=== PATIENT | female | born 1975 | race Caucasian/White ===

== ENCOUNTER → 2017-08-24 08:06 | Outpatient (CLI) | payer SELFPAY ==
[2017-08-24 08:27] LABS: Red Blood Cells-Urine 0 SEEN /hpf (0-5)
[2017-08-24 10:24] LABS: Color, Urine Yellow (Yellow); Glucose, Dipstick Normal (Normal); Ketone-Dipstick Negative (Negative); Leukocyte Esterase-Dipstick 25 /ul (Negative); Nitrite-Dipstick Negative (Negative); Occult Blood-Urine 10 /ul (Negative); Protein-Dipstick 15 mg/dl (Negative); Urine Bilirubin Dipstick Negative (Negative); Urine Clarity Cloudy (Clear); Urine Urobilinogen Normal (Normal)
[2017-08-24 10:37] LABS: Bacteria 1+ /hpf (None Seen); Mucous, Urine 1+ /hpf (<or=2+); Squamous Epithelial Cells - UA 5-10 SEEN /hpf (5-10); White Blood Cells 0-5 SEEN /hpf (0-5)
[2017-08-24 10:55] LABS: Absolute Lymphocyte Count 1.65 X10^3/ul (0.83-4.51); Absolute Neutrophil Count 3.1 X10^3/uL (2.0-7.7); Basophil# 0.02 X10^3/uL; Basophil% 0.4 % (0-1); Eosinophil# 0.17 X10^3/uL; Eosinophils% 3.2 % (0-5); Hematocrit 41.3 % (37-47); Hemoglobin 13.9 g/dl (12.0-15.0); Lymphocyte # 1.65 X10^3/ul (4.0); Mean Corp Hgb Conc 33.7 g/gl (32-36); Mean Corpuscular Hgb 34.3 pg (27.0-32.0); Mean Platelet Vol. 12.1 fl (6.2-12.0); Monocyte# 0.37 X10^3/uL; Neutrophil % 58.2 % (47-70); Platelet Count 155 K/mm3 (150-450); RBC Distribution Width CV 12.9 % (11.6-14.6); RBC Distribution Width SD 47.8 fl (35.1-43.9); Red Blood Count 4.05 M/mm3 (4.2-5.4); White Blood Count 5.3 K/mm3 (4.4-11.0)
[2017-08-24 11:00] LABS: Vitamin B12 625 pg/mL (211-911); Vitamin D,25 Hydroxy 11.3 ng/mL (19.95-100.01)
[2017-08-24 11:01] LABS: POSITIVE COUNT NO; POSITIVE DIFFERENTIAL NO; POSITIVE MORPHOLOGY NO
[2017-08-24 11:13] LABS: Hemoglobin A1c 5.7 % (4.2-6.3)
[2017-08-24 11:21] LABS: ALB/GLOB Ratio 0.9 RATIO (0.9-2.4); AST(SGOT) 30 U/L (15-37); Alanine Aminotransfer ALT/SGPT 37 U/L (13-56); Albumin, Serum 3.7 g/dL (3.2-5.0); Alkaline Phosphatase 64 U/L (45-117); Anion Gap 8 (5-15); BUN 12 mg/dL (7-18); BUN/Creat Ratio 10.2 RATIO (10-20); Calcium,Total 8.6 mg/dL (8.5-10.1); Chloride 99 mmol/L (98-107); Cholesterol 260 mg/dL (200); Creatinine, Serum 1.18 mg/dL (0.55-1.02); EST Glomerular Filtration Rate 54 mL/min (>60); Est Glom Filt Rate - Afr Amer 65 mL/min (>60); Globulin 4.2 g/dL (2.2-4.2); Glucose 108 mg/dL (74-106); High Density Lipoprotein 43 mg/dL; Protein, Total 7.9 g/dL (6.4-8.2); Sodium Level 137 mmol/L (136-145); T4 Free Direct 0.13 ng/dL (0.76-1.46); Triglycerides 187 mg/dL; Very Low Density Lipoprotein 37 mg/dL (5-40)
== END ==
PROVIDERS: Family Provider Family Medicine; PCP Family Medicine; Visit Provider Family Medicine
DX: E66.01 Morbid (severe) obesity due to excess calories (principal); E03.8 Other specified hypothyroidism; E78.5 Hyperlipidemia, unspecified; G62.9 Polyneuropathy, unspecified
CPT/HCPCS: 36415; 80053; 80061; 81001; 82306; 82607; 82746; 83036; 84439; 84443; 85025

== ENCOUNTER 2017-11-04 11:00 | Outpatient (RCR) | payer MEDICAID, SELFPAY ==
--- NOTE | 2017-09-29 16:07 | HP.OTEVAL_ITS ---
Patient's Visit Information LILLIANA OLIVERA is a 41 year old F, referred to Occupational Therapy by Landry Lowery MD,, with a diagnosis of Bilateral lymphedema. Date of Evaluation: 09/29/17 Occupational Therapist: SIXTO Leon/Jesus, CHT - Subjective Subjective: This 41 year old female states she has struggled with swelling in her LE and has had cellulitis- pt states she has tried to use compression hose but it has not been helpful and caused pain. - Pain bilateral legs 3 Pain Intensity Range: 0, 6 - Objective Objective/Observation: skin is dry and flak - Lymphedema (Circumferential Measure) Mid-foot: right 26.5cm left 26.5cm Ankle: right 30cm left 31.5cm Lower calf: right 38cm left 41.5cm Largest calf: right 57cm left 57cm Below knee: right 49cm left 49cm Above knee: right 69cm left 65cm - Sensation Sensation Comments: denies - Lower Limb Functional Index Lower Extremity Functional Score: 44 - Goals Demonstrate a 20% reduction in edema by d/c: Yes Demonstrate adequate knowledge of self-bangaging by 1st week: Yes Demonstrate adequate knowledge of self-massage by 2nd week: Yes Demonstrate adequate knowledge skin care/prec by 2nd week: Yes Demonstrate adequate knowledge therapeutic exercises by d/c: Yes Select approp compression garment w/donning/care/wear by d/c: Yes Voice need to replace compression garment every 4-6mo by dc: Yes - Rehabilitation General Assessment: pt demo with stage III lymphedema with skin changes and firm texture to her legs- pt ed. today on wraps to LE and use of compression to assist in mtg. pt demo undersanding and would benefit from further therapy services 1-2xweek for 4 weeks to decrease LE limb size and ensure pt gets 30- 40mmHg compression socks. Rehabilitation Potential: Questionable - Anticipated Interventions Anticipated Interventions: Education re assistive Equipment, Education re Diagnosis, Manual Lymph Drainage, Education re Life-long lymphedema Management, Education re Self-Bandaging Techniques, Education re Skin Care and Precautions, Education re Self Massage Techniques, Education re Correct Donning Tech,Care& Wearing Sched Comp Garments, Caregiver Training, Home Program - Visit Plan Frequency: 1-2x /Week Duration: 4 Weeks General Plan: will estabilis pts understanding of wraps to bilateral LE . pt will be seen in pool for 3-4 vists to stim lymph fluid flow and wrap following. and cont with HEP TEXT: Thank you for the opportunity to evaluate your patient. For Medicare and Medicare HMO plans, please review the plan of care and approve it. It will need to be FAXED BACK to us at [phone] for Medicare purposes. Please let me know if there are questions or concerns regarding this plan of care. Physician Signature: Date:
--- NOTE | 2017-11-04 11:40 | HP.OTDCSUM_ITS ---
HP - OT D/C Summary It has been my pleasure to treat LILLIANA OLIVERA under orders from Landry Lowery MD, for the diagnosis of Bilateral lymphedema for a total of 6 visit(s ). Please see the following information for a summary of their discharge status. - Objective Objective/Function: pt has lost 12lbs states her legs are feelsing better. R/L ankle 29.5/28cm. R/L LC 34/36cm. R/L UC 55/57. R/L BK 52cm/52cm. R/L AK 67/ 67cm - Goals Patient Goals: Learn how to Manage Lymphedema, Learn how to Apply Compression Stockings Demonstrate a 20% reduction in edema by d/c: Yes Demonstrate adequate knowledge of self-bangaging by 1st week: Yes Demonstrate adequate knowledge of self-massage by 2nd week: Yes Demonstrate adequate knowledge skin care/prec by 2nd week: Yes Demonstrate adequate knowledge therapeutic exercises by d/c: Yes Select approp compression garment w/donning/care/wear by d/c: Yes Voice need to replace compression garment every 4-6mo by dc: Yes - Plan Plan: D/C - D/C Information Discharge Comments: pt has demo a decreased in BLE edema - pt demo understanding of lymph mtg- pt has compression socks on order from [facility]- pt demo understanding of use and care- pt agree for D/C states she she feels the water therapy had helped and will cont with this to assist in mtg of her lymphedema. pt demo understanding of returning to her Dr. if swelling increases. Pt D/c at this time. If there are questions or concerns regarding this patient's occupational therapy , please fell free to call me at [phone]. Thank you for the referral of this patient. Sincerely, Radha Soria, OTR/L, CHT
== END 2017-11-04 19:00 | disposition home or self-care (01) ==
LOC: OT 11:00
PROVIDERS: Family Provider Family Medicine; PCP Family Medicine; Visit Provider Family Medicine
DX: I89.0 Lymphedema, not elsewhere classified (principal)
CPT/HCPCS: 97110; 97113; 97166; 97168; 97530

== ENCOUNTER 2017-11-15 21:13 | Emergency (ER) | payer MEDICAID, SELFPAY ==
[2017-11-15 21:14] VITALS: BP 158/79; PULSE 111; RESP 20; TEMP 37.2; O2SAT 95; BMI 56.9
[2017-11-15 21:32] LABS: Mucous, Urine 0 SEEN /hpf (<or=2+)
[2017-11-15 21:35] LABS: Color, Urine Yellow (Yellow); Glucose, Dipstick Normal (Normal); Ketone-Dipstick 5 mg/dl (Negative); Leukocyte Esterase-Dipstick 500 /ul (Negative); Nitrite-Dipstick Negative (Negative); Occult Blood-Urine 10 /ul (Negative); Protein-Dipstick 30 mg/dl (Negative); Urine Bilirubin Dipstick 1 mg/dL (Negative); Urine Clarity Sl. Cloudy (Clear); Urine Urobilinogen Normal (Normal)
[2017-11-15 21:42] LABS: Bacteria 3+ /hpf (None Seen); Red Blood Cells-Urine 0-5 SEEN /hpf (0-5); Squamous Epithelial Cells - UA 10-25 SEEN /hpf (5-10); White Blood Cells 5-10 SEEN /hpf (0-5)
--- NOTE | 2017-11-15 22:20 | CT_ITS ---
STUDY: CT ABDOMEN AND PELVIS WITH CONTRAST - VENOGRAM REASON FOR EXAM: Female, 41 years old. Right lower quadrant pain RADIATION DOSAGE (If Supplied By Facility): CTDIvol = ( 18.74 ) mGy, DLP = ( 1353.74 ) mGycm TECHNIQUE: Transaxial images were obtained from the dome of the diaphragm to the symphysis pubis without oral contrast. 100 ml of Isovue 300 contrast was administered. Multiplanar coronal and sagittal images were reformatted. CT venogram protocol utilized, with delayed images performed during venous phase. Individualized Dose Optimization Techniques Were Used For This CT. COMPARISON: None. FINDINGS: STUDY: CT ABDOMEN AND PELVIS WITH CONTRAST REASON FOR EXAM: Female, 41 years old. Right lower quadrant pain RADIATION DOSAGE (If Supplied By Facility): CTDIvol = ( 18.74 ) mGy, DLP = ( 1353.74 ) mGycm TECHNIQUE: Transaxial images were obtained from the dome of the diaphragm to the symphysis pubis without oral contrast. 100 ml of Isovue 300 contrast was administered. Sagittal and coronal images were reconstructed. Individualized dose optimization techniques were used for this CT. COMPARISON: None. FINDINGS: The visualized lung bases are clear. The visualized portions of the heart and pericardium are within normal limits. There are multiple small calcified gallstones present. The liver is within normal limits. There are no suspicious hepatic lesions. The spleen is normal in size. The pancreas is within normal limits. The adrenal glands are within normal limits. There are no obstructing renal stones. There is no hydronephrosis. There are no focal renal lesions. Normal visualized stomach. There is no bowel obstruction or inflammation. The appendix is visualized and appears normal. The aorta is normal in caliber. There is no abdominal or pelvic free air, free fluid, fluid collection or lymphadenopathy. There are no destructive osseous lesions. CT/Abdomen/Pelvis W IV Cont ONLY IMPRESSION: No acute abdominal or pelvic pathology. Gallstones. Electronically Signed: Duane Almaraz, at 23:47 EDT Tel , Service support ,
--- NOTE | 2017-11-15 22:22 | ED.VISSUMM ---
- ER Visit Summary Date of Service: 11/15/17 Chief Complaint: Abdominal pain History of Present Illness: The patient is a 41 F with abdominal pain. Symptoms started about 4 days ago. They have been intermittent. Started just to the right of her umbilicus and then has progressed to the right lower quadrant. Low-grade fever yesterday. No nausea, vomiting, or diarrhea. No skin changes or jaundice. No urinary symptoms. She has a history of tubal ligation and hysteroscopy but no other abdominal surgeries. Physical Examination: Hypertensive and heart rate 111. Otherwise vitals unremarkable. Afebrile. No acute distress. Alert and oriented. Heart regular. Lungs clear. Abdomen tender in the right lower quadrant region. No guarding or rebound. No CVA tenderness. Skin is normal in color. Test Results: Labs, urinalysis, and CT pending. Emergency Department Course and Treatment: Patient was treated with fluids while awaiting results. She declined pain medicine. Workup was unremarkable. Her urinalysis was likely contaminated, but I cannot rule out an infection. I was sent a culture. The patient did not want to be on preemptive antibiotics. CT showed gallstones but nothing acute. Patient remained stable. I am not sure what is causing her pain. She may take over the remedies for pain. Return for any new or worsening issues otherwise follow-up with primary care. Treatment Plan: As above Disposition: Discharged Impression: Abdominal pain This note was generated with [employer] dictation software. It may contain incorrect words, spelling, and punctuation that were not noted in review of the chart prior to signing ED Disposition - Plan for ED Patient: Chief Complaint: Abd Pain Referrals: Landry Lowery MD [Primary Care Provider] -
[2017-11-15 23:03] LABS: Absolute Lymphocyte Count 2.07 X10^3/ul (0.83-4.51); Absolute Neutrophil Count 4.2 X10^3/uL (2.0-7.7); Basophil# 0.01 X10^3/uL; Basophil% 0.1 % (0-1); Eosinophil# 0.18 X10^3/uL; Eosinophils% 2.5 % (0-5); Hematocrit 40.2 % (37-47); Lymphocyte # 2.07 X10^3/ul (4.0); Mean Corp Hgb Conc 32.3 g/gl (32-36); Mean Corpuscular Hgb 31.1 pg (27.0-32.0); Mean Corpuscular Volume 96.2 fL (81-99); Mean Platelet Vol. 10.8 fl (6.2-12.0); Monocyte# 0.62 X10^3/uL; Monocyte% 8.7 % (0-10); Neutrophil # 4.24 X10^3/uL (2.7-7.7); Neutrophil % 59.6 % (47-70); Platelet Count 194 K/mm3 (150-450); RBC Distribution Width SD 44.7 fl (35.1-43.9); Red Blood Count 4.18 M/mm3 (4.2-5.4); White Blood Count 7.1 K/mm3 (4.4-11.0)
[2017-11-15 23:05] LABS: POSITIVE COUNT NO; POSITIVE DIFFERENTIAL NO; POSITIVE MORPHOLOGY NO
[2017-11-15] MEDS: 0.9% Normal Saline 1,000 ML 125 ML IV (23:10)
[2017-11-15 23:16] LABS: ALB/GLOB Ratio 0.7 RATIO (0.9-2.4); AST(SGOT) 17 U/L (15-37); Alanine Aminotransfer ALT/SGPT 24 U/L (13-56); Albumin, Serum 3.2 g/dL (3.2-5.0); Alkaline Phosphatase 64 U/L (45-117); Anion Gap 3 (5-15); BUN 14 mg/dL (7-18); BUN/Creat Ratio 14.4 RATIO (10-20); Calcium,Total 9.1 mg/dL (8.5-10.1); Chloride 106 mmol/L (98-107); Creatinine, Serum 0.97 mg/dL (0.55-1.02); EST Glomerular Filtration Rate 67 mL/min (>60); Est Glom Filt Rate - Afr Amer 82 mL/min (>60); Estimated Creatinine Clearance 87.03 ml/min; Globulin 4.3 g/dL (2.2-4.2); Glucose 108 mg/dL (74-106); Lipase 109 U/L (73-393); Potassium 3.9 mmol/L (3.5-5.1); Protein, Total 7.5 g/dL (6.4-8.2); Sodium Level 142 mmol/L (136-145)
[2017-11-15 23:19] LABS: Pregnancy, Serum, hCG Quali. NEGATIVE Negative (0-9 Nonpreg)
[2017-11-15 23:59] VITALS: BP 111/59; PULSE 91; O2SAT 93
--- NOTE | 2017-11-16 00:54 | ED.DEP ---
ED Disposition - Plan for ED Patient: Chief Complaint: Abd Pain Instructions: ED Abdominal Pain Unkn Cause Referrals: Landry Lowery MD [Primary Care Provider] -
[2017-11-16 01:01] VITALS: BP 128/71; PULSE 86; RESP 20; O2SAT 93
== END 2017-11-16 01:04 | disposition home or self-care (01) ==
LOC: ED 22:29
PROVIDERS: Emergency Provider Emergency Medicine; Family Provider Family Medicine; PCP Family Medicine
DX: R10.9 Unspecified abdominal pain (principal); E78.00 Pure hypercholesterolemia, unspecified; G47.33 Obstructive sleep apnea (adult) (pediatric); Z98.51 Tubal ligation status
CPT/HCPCS: 74177; 80053; 81001; 83690; 84703; 85025; 99283; J7030; A4216

== ENCOUNTER → 2017-11-24 09:30 | Outpatient (CLI) | payer MEDICAID, SELFPAY ==
[2017-11-24 12:47] LABS: Cholesterol 122 mg/dL (200); High Density Lipoprotein 36 mg/dL; T4 Free Direct 1.21 ng/dL (0.76-1.46); Thyroid Stim Hormone (TSH) 5.23 uIU/mL (0.358-3.74); Triglycerides 155 mg/dL; Very Low Density Lipoprotein 31 mg/dL (5-40)
[2017-11-24 12:48] LABS: Hemoglobin A1c 5.3 % (4.2-6.3)
[2017-11-25 09:30] LABS: Vitamin D,25 Hydroxy 44.5 ng/mL (29.95-100.01)
== END ==
PROVIDERS: Family Provider Family Medicine; PCP Family Medicine; Visit Provider Family Medicine
DX: R73.02 Impaired glucose tolerance (oral) (principal); E78.5 Hyperlipidemia, unspecified; E03.8 Other specified hypothyroidism; E55.9 Vitamin D deficiency, unspecified
CPT/HCPCS: 36415; 80061; 82306; 83036; 84439; 84443

== ENCOUNTER → 2017-12-01 23:53 | Outpatient (CLI) | payer MEDICAID, SELFPAY | PROVIDERS: Family Provider Family Medicine; PCP Family Medicine; Visit Provider Internal Medicine Critical Care Medicine | DX: G47.33 Obstructive sleep apnea (adult) (pediatric) (principal) | CPT/HCPCS: 95811 ==

== ENCOUNTER → 2018-02-04 11:07 | Outpatient (CLI) | payer MEDICAID, SELFPAY | PROVIDERS: Family Provider Family Medicine; PCP Family Medicine; Visit Provider Nurse Practitioner Family | DX: Z46.89 Encounter for fitting and adjustment of other specified devices (principal) | CPT/HCPCS: 98960; G0463 ==

== ENCOUNTER → 2018-03-03 10:04 | Outpatient (CLI) | payer MEDICAID, SELFPAY ==
[2018-03-03 12:52] LABS: ALB/GLOB Ratio 0.7 RATIO (0.9-2.4); AST(SGOT) 22 U/L (15-37); Alanine Aminotransfer ALT/SGPT 25 U/L (13-56); Alkaline Phosphatase 73 U/L (45-117); Anion Gap 7 (5-15); BUN 12 mg/dL (7-18); BUN/Creat Ratio 12.7 RATIO (10-20); Calcium,Total 8.5 mg/dL (8.5-10.1); Chloride 107 mmol/L (98-107); Cholesterol 185 mg/dL (200); Creatinine, Serum 0.95 mg/dL (0.55-1.02); EST Glomerular Filtration Rate 70 mL/min (>60); Est Glom Filt Rate - Afr Amer 84 mL/min (>60); Globulin 4.4 g/dL (2.2-4.2); Glucose 105 mg/dL (74-106); High Density Lipoprotein 32 mg/dL; Potassium 3.8 mmol/L (3.5-5.1); Protein, Total 7.4 g/dL (6.4-8.2); Sodium Level 141 mmol/L (136-145); T4 Free Direct 0.51 ng/dL (0.76-1.46); Triglycerides 223 mg/dL; Very Low Density Lipoprotein 45 mg/dL (5-40)
[2018-03-03 12:56] LABS: Hemoglobin A1c 5.4 % (4.2-6.3); Vitamin D,25 Hydroxy 25.6 ng/mL (29.95-100.01)
== END ==
PROVIDERS: Family Provider Family Medicine; PCP Family Medicine; Visit Provider Family Medicine
DX: E55.9 Vitamin D deficiency, unspecified (principal); E03.8 Other specified hypothyroidism; E78.5 Hyperlipidemia, unspecified; R73.02 Impaired glucose tolerance (oral); E66.01 Morbid (severe) obesity due to excess calories
CPT/HCPCS: 36415; 80053; 80061; 82306; 83036; 84439; 84443

== ENCOUNTER → 2018-08-27 14:08 | Outpatient (CLI) | payer MEDICAID, SELFPAY ==
[2018-03-03 13:21] VITALS: BMI 58.6
[2018-08-27 16:01] LABS: Absolute Lymphocyte Count 2.05 X10^3/ul (0.83-4.51); Absolute Neutrophil Count 3.3 X10^3/uL (2.0-7.7); Basophil# 0.01 X10^3/uL; Basophil% 0.2 % (0-1); Eosinophil# 0.14 X10^3/uL; Eosinophils% 2.4 % (0-5); Hematocrit 42.2 % (37-47); Hemoglobin 13.2 g/dl (12.0-15.0); Lymphocyte # 2.05 X10^3/ul (4.0); Mean Corp Hgb Conc 31.3 g/gl (32-36); Mean Corpuscular Hgb 30.1 pg (27.0-32.0); Mean Corpuscular Volume 96.3 fL (81-99); Mean Platelet Vol. 11.1 fl (6.2-12.0); Monocyte# 0.35 X10^3/uL; Neutrophil # 3.29 X10^3/uL (2.7-7.7); Neutrophil % 56.1 % (47-70); Platelet Count 188 K/mm3 (150-450); RBC Distribution Width CV 13.3 % (11.6-14.6); Red Blood Count 4.38 M/mm3 (4.2-5.4); White Blood Count 5.9 K/mm3 (4.4-11.0)
[2018-08-27 16:04] LABS: POSITIVE COUNT NO; POSITIVE DIFFERENTIAL NO; POSITIVE MORPHOLOGY NO
[2018-08-27 16:05] LABS: Hemoglobin A1c 5.6 % (4.2-6.3)
[2018-08-27 16:14] LABS: Vitamin D,25 Hydroxy 37.6 ng/mL (29.95-100.01)
[2018-08-27 16:19] LABS: ALB/GLOB Ratio 0.6 RATIO (0.9-2.4); AST(SGOT) 21 U/L (15-37); Alanine Aminotransfer ALT/SGPT 35 U/L (13-56); Alkaline Phosphatase 73 U/L (45-117); Anion Gap 9 (5-15); BUN 8 mg/dL (7-18); BUN/Creat Ratio 10.8 RATIO (10-20); Calcium,Total 8.5 mg/dL (8.5-10.1); Chloride 105 mmol/L (98-107); Creatinine, Serum 0.74 mg/dL (0.55-1.02); EST Glomerular Filtration Rate 92 mL/min (>60); Est Glom Filt Rate - Afr Amer 112 mL/min (>60); Globulin 4.7 g/dL (2.2-4.2); Glucose 77 mg/dL (74-106); Potassium 3.8 mmol/L (3.5-5.1); Protein, Total 7.7 g/dL (6.4-8.2); Sodium Level 143 mmol/L (136-145); Thyroid Stim Hormone (TSH) 1.34 uIU/mL (0.358-3.74)
== END ==
PROVIDERS: Family Provider Family Medicine; PCP Family Medicine; Referring Provider Family Medicine; Visit Provider Family Medicine
DX: E55.9 Vitamin D deficiency, unspecified (principal); E03.8 Other specified hypothyroidism; R73.02 Impaired glucose tolerance (oral); E66.01 Morbid (severe) obesity due to excess calories; G47.33 Obstructive sleep apnea (adult) (pediatric)
CPT/HCPCS: 36415; 80053; 82306; 83036; 84443; 85025

== ENCOUNTER → 2019-01-18 14:54 | Outpatient (CLI) | payer SELFPAY ==
[2018-03-03 13:21] VITALS: BMI 58.6
[2019-01-18 18:10] LABS: Albumin, Serum 3.3 g/dL (3.2-5.0); BUN 10 mg/dL (7-18); BUN/Creat Ratio 12.3 RATIO (10-20); Creatinine, Serum 0.81 mg/dL (0.55-1.02); EST Glomerular Filtration Rate 83 mL/min (>60); Est Glom Filt Rate - Afr Amer 100 mL/min (>60); Glucose 106 mg/dL (74-106); Protein, Total 7.7 g/dL (6.4-8.2)
[2019-01-18 18:11] LABS: ALB/GLOB Ratio 0.8 RATIO (0.9-2.4); AST(SGOT) 27 U/L (15-37); Alanine Aminotransfer ALT/SGPT 40 U/L (13-56); Alkaline Phosphatase 68 U/L (45-117); Anion Gap 6 (5-15); Calcium,Total 8.7 mg/dL (8.5-10.1); Chloride 105 mmol/L (98-107); Cholesterol 93 mg/dL (200); Globulin 4.4 g/dL (2.2-4.2); High Density Lipoprotein 37 mg/dL; Potassium 4.3 mmol/L (3.5-5.1); Sodium Level 140 mmol/L (136-145); Thyroid Stim Hormone (TSH) 0.47 uIU/mL (0.358-3.74); Triglycerides 77 mg/dL; Very Low Density Lipoprotein 15 mg/dL (5-40)
[2019-01-18 18:13] LABS: Vitamin D,25 Hydroxy 42.3 ng/mL (29.95-100.01)
[2019-01-18 18:17] LABS: Hemoglobin A1c 5.6 % (4.2-6.3)
== END ==
PROVIDERS: Family Provider Family Medicine; PCP Family Medicine; Visit Provider Family Medicine
DX: E03.8 Other specified hypothyroidism (principal); E78.5 Hyperlipidemia, unspecified; E66.01 Morbid (severe) obesity due to excess calories; E55.9 Vitamin D deficiency, unspecified; R73.02 Impaired glucose tolerance (oral)
CPT/HCPCS: 36415; 80053; 80061; 82306; 83036; 84443

== ENCOUNTER → 2019-07-11 15:44 | Outpatient (CLI) | payer SELFPAY ==
[2018-03-03 13:21] VITALS: BMI 58.6
[2019-07-11 18:03] LABS: Absolute Lymphocyte Count 1.87 X10^3/uL (0.83-4.51); Absolute Neutrophil Count 4.7 X10^3/uL (2.0-7.7); Basophil# 0.03 X10^3/uL; Basophil% 0.4 % (0-1); Eosinophil# 0.16 X10^3/uL; Eosinophils% 2.2 % (0-5); Hematocrit 42.5 % (37-47); Hemoglobin 13.9 g/dL (12.0-15.0); Lymphocyte # 1.87 X10^3/ul (4.0); Lymphocyte % 25.8 % (19-41); Mean Corp Hgb Conc 32.7 g/dL (32-36); Mean Corpuscular Hgb 33.1 pg (27.0-32.0); Mean Corpuscular Volume 101.2 fL (81-99); Mean Platelet Vol. 11.3 fl (6.2-12.0); Monocyte# 0.44 X10^3/uL; Monocyte% 6.1 % (0-10); NRBC Flagged by Analyzer 0 % (0-5); Neutrophil # 4.73 X10^3/uL (2.7-7.7); Neutrophil % 65.1 % (47-70); Platelet Count 188 K/mm3 (150-450); RBC Distribution Width CV 12.5 % (11.6-14.6); RBC Distribution Width SD 46.7 fl (35.1-43.9); White Blood Count 7.3 K/mm3 (4.4-11.0)
[2019-07-11 18:07] LABS: Vitamin D,25 Hydroxy 23.9 ng/mL (29.95-100.01)
[2019-07-11 18:12] LABS: Hemoglobin A1c 5.3 % (4.2-6.3)
[2019-07-11 18:20] LABS: ALB/GLOB Ratio 0.7 RATIO (0.9-2.4); AST(SGOT) 15 U/L (15-37); Alanine Aminotransfer ALT/SGPT 28 U/L (13-56); Albumin, Serum 3.1 g/dL (3.2-5.0); Alkaline Phosphatase 75 U/L (45-117); Anion Gap 3 (5-15); BUN 11 mg/dL (7-18); BUN/Creat Ratio 12.8 RATIO (10-20); Calcium,Total 8.5 mg/dL (8.5-10.1); Chloride 107 mmol/L (98-107); Cholesterol 180 mg/dL (200); Creatinine, Serum 0.86 mg/dL (0.55-1.02); EST Glomerular Filtration Rate 77 mL/min (>60); Est Glom Filt Rate - Afr Amer 94 mL/min (>60); Globulin 4.4 g/dL (2.2-4.2); Glucose 110 mg/dL (74-106); High Density Lipoprotein 37 mg/dL; Potassium 4.3 mmol/L (3.5-5.1); Protein, Total 7.5 g/dL (6.4-8.2); Sodium Level 141 mmol/L (136-145); Thyroid Stim Hormone (TSH) 7.55 uIU/mL (0.358-3.74); Triglycerides 222 mg/dL; Very Low Density Lipoprotein 44 mg/dL (5-40)
[2019-07-12 10:38] LABS: T4 Free Direct 1.06 ng/dL (0.76-1.46)
== END ==
PROVIDERS: Family Provider Family Medicine; PCP Family Medicine; Visit Provider Family Medicine
DX: R73.02 Impaired glucose tolerance (oral) (principal); E66.01 Morbid (severe) obesity due to excess calories; G47.33 Obstructive sleep apnea (adult) (pediatric); E78.5 Hyperlipidemia, unspecified; E55.9 Vitamin D deficiency, unspecified; E03.8 Other specified hypothyroidism
CPT/HCPCS: 36415; 80053; 80061; 82306; 83036; 84439; 84443; 85025

== ENCOUNTER → 2019-11-01 16:20 | Outpatient (CLI) | payer SELFPAY ==
[2018-03-03 13:21] VITALS: BMI 58.6
[2019-11-01 18:03] LABS: Vitamin D,25 Hydroxy 35.5 ng/mL
== END ==
PROVIDERS: PCP Family Medicine; Referring Provider Family Medicine; Visit Provider Family Medicine
DX: E55.9 Vitamin D deficiency, unspecified (principal); E03.8 Other specified hypothyroidism
CPT/HCPCS: 36415; 82306; 84443

== ENCOUNTER → 2020-01-24 11:26 | Outpatient (CLI) | payer SELFPAY ==
[2020-01-24 15:34] LABS: Vitamin D,25 Hydroxy 49.6 ng/mL
[2020-01-24 16:01] LABS: T4 Free Direct 2.09 ng/dL (0.76-1.46)
[2020-01-24 16:56] LABS: Hemoglobin A1c 5.5 % (3.8-5.6)
== END ==
PROVIDERS: PCP Family Medicine; Referring Provider Family Medicine; Visit Provider Family Medicine
DX: E03.8 Other specified hypothyroidism (principal); E55.9 Vitamin D deficiency, unspecified; R73.02 Impaired glucose tolerance (oral)
CPT/HCPCS: 36415; 82306; 83036; 84439; 84443

== ENCOUNTER 2020-03-29 00:17 | Emergency (ER) | payer SELFPAY ==
[2020-03-29 00:18] VITALS: BP 157/69; PULSE 95; RESP 20; TEMP 37.2; O2SAT 96; BMI 60.2
--- NOTE | 2020-03-29 00:31 | ED.VIS.GEN ---
History of Present Illness Chief Complaint: Abscess Narrative: This patient is a 44-year-old female who presents with rectal pain. She states she has been trying to change her diet and has had constipation. She now has pain with defecation on the right side of her anus. She was concerned she may have an abscess. No fevers. No abdominal pain. No history of prior similar symptoms. Past Medical History - Allergies and Home Meds Allergies/Adverse Reactions: Allergies sulfamethoxazole [From Bactrim] Allergy (Mild, Verified 03/29/20 00:21) Rash trimethoprim [From Bactrim] Allergy (Mild, Verified 03/29/20 00:21) Rash Primary Care Physician: Landry Lowery MD [Primary Care Provider] - Past Medical History: - - Hypothyroidism, hyperlipidemia Smoking Status: Never smoker Review of Systems All systems negative except as indicated General: Denies: Fever Cardiovascular: Denies: Chest pain Respiratory: Denies: Dyspnea Gastrointestinal: Reports: Constipation. Denies: Abdominal pain, Nausea, Diarrhea Skin: Denies: Rash Neurological: Denies: Headache Physical Exam Vital Signs/Narrative: Vital Signs Temp Pulse Resp BP Pulse Ox 03/29/20 00:18 98.9 F 95 20 H 157/69 H 96 Inital Vital Signs reviewed: Yes General: Well nourished Head: Normocephalic Eyes: EOMI ENT: Moist mucous membranes Neck: Supple Cardiovascular: Regular rate Respiratory: No distress Abdomen: Soft, Nontender Rectal: - - Patient does have an anal fissure, no perianal abscess Skin: Normal color Neurological: Alert Psychological: Normal affect Diagnostic/Tx/Re-eval - Medical Decision Making Patient was given lidocaine jelly here to help with symptomatic relief. I discussed treatment for constipation is the mainstay of treatment for anal fissure. Patient understands to return for new or worsening symptoms. Patient advised to follow-up as an outpatient. Patient was discharged. ED Disposition - Plan for ED Patient: Disposition: Home or Assisted Living Diagnosis: Anal fissure Instructions: ED Fissure Anal Ch Referrals: Landry Lowery MD [Primary Care Provider] -
[2020-03-29] MEDS: Lidocaine 2% Jelly 1 APPLIC Tube TOPICAL (00:41)
== END 2020-03-29 00:59 | disposition home or self-care (01) ==
LOC: ED 00:45
PROVIDERS: Emergency Provider Emergency Medicine; PCP Family Medicine
DX: K60.2 Anal fissure, unspecified (principal); E03.9 Hypothyroidism, unspecified; E78.5 Hyperlipidemia, unspecified; K59.00 Constipation, unspecified; Z88.1 Allergy status to other antibiotic agents; Z88.2 Allergy status to sulfonamides
CPT/HCPCS: 99282

== ENCOUNTER → 2020-07-27 15:30 | Outpatient (CLI) | payer SELFPAY ==
[2020-07-27 17:58] LABS: Vitamin D,25 Hydroxy 31.2 ng/mL
[2020-07-27 18:04] LABS: Hemoglobin A1c 5.4 % (3.8-5.6)
[2020-07-27 18:10] LABS: ALB/GLOB Ratio 0.7 RATIO (0.9-2.4); AST(SGOT) 18 U/L (15-37); Alanine Aminotransfer ALT/SGPT 27 U/L (13-56); Albumin, Serum 3.4 g/dL (3.2-5.0); Alkaline Phosphatase 84 U/L (45-117); Anion Gap 4 (5-15); BUN 15 mg/dL (7-18); BUN/Creat Ratio 15.6 RATIO (10-20); Calcium,Total 9.1 mg/dL (8.5-10.1); Chloride 107 mmol/L (98-107); Creatinine, Serum 0.96 mg/dL (0.55-1.02); EST Glomerular Filtration Rate 67 mL/min (>60); Est Glom Filt Rate - Afr Amer 82 mL/min (>60); Globulin 4.7 g/dL (2.2-4.2); Glucose 85 mg/dL (74-106); Potassium 4.2 mmol/L (3.5-5.1); Protein, Total 8.1 g/dL (6.4-8.2); Sodium Level 139 mmol/L (136-145); T4 Free Direct 1.22 ng/dL (0.76-1.46); Thyroid Stim Hormone (TSH) 6.21 uIU/mL (0.358-3.74)
== END ==
PROVIDERS: PCP Family Medicine; Referring Provider Family Medicine; Visit Provider Family Medicine
DX: E03.8 Other specified hypothyroidism (principal); E55.9 Vitamin D deficiency, unspecified; E66.01 Morbid (severe) obesity due to excess calories; R73.02 Impaired glucose tolerance (oral)
CPT/HCPCS: 36415; 80053; 82306; 83036; 84439; 84443

== ENCOUNTER → 2020-10-22 15:23 | Outpatient (CLI) | payer SELFPAY ==
[2020-10-22 18:29] LABS: ALB/GLOB Ratio 0.7 RATIO (0.9-2.4); AST(SGOT) 11 U/L (15-37); Alanine Aminotransfer ALT/SGPT 23 U/L (13-56); Albumin, Serum 3.2 g/dL (3.2-5.0); Alkaline Phosphatase 84 U/L (45-117); Anion Gap 3 (5-15); BUN 10 mg/dL (7-18); BUN/Creat Ratio 12.3 RATIO (10-20); Calcium,Total 8.7 mg/dL (8.5-10.1); Chloride 104 mmol/L (98-107); Cholesterol 155 mg/dL (200); Creatinine, Serum 0.82 mg/dL (0.55-1.02); EST Glomerular Filtration Rate 81 mL/min (>60); Est Glom Filt Rate - Afr Amer 99 mL/min (>60); Globulin 4.9 g/dL (2.2-4.2); Glucose 102 mg/dL (74-106); High Density Lipoprotein 40 mg/dL; Potassium 4.1 mmol/L (3.5-5.1); Protein, Total 8.1 g/dL (6.4-8.2); Sodium Level 139 mmol/L (136-145); Thyroid Stim Hormone (TSH) 4.54 uIU/mL (0.358-3.74); Triglycerides 175 mg/dL; Very Low Density Lipoprotein 35 mg/dL (5-40)
[2020-10-22 18:32] LABS: Vitamin D,25 Hydroxy 39.6 ng/mL
== END ==
PROVIDERS: PCP Family Medicine; Visit Provider Family Medicine
DX: E55.9 Vitamin D deficiency, unspecified (principal); E78.5 Hyperlipidemia, unspecified; E03.8 Other specified hypothyroidism
CPT/HCPCS: 36415; 80053; 80061; 82306; 84443

== ENCOUNTER → 2021-01-23 14:26 | Outpatient (CLI) | payer OTHER, SELFPAY ==
[2021-01-23 17:48] LABS: Absolute Lymphocyte Count 1.61 X10^3/uL (0.83-4.51); Absolute Neutrophil Count 3.7 X10^3/uL (2.0-7.7); Basophil# 0.02 X10^3/uL; Basophil% 0.3 % (0-1); Eosinophil# 0.17 X10^3/uL; Eosinophils% 2.8 % (0-5); Hemoglobin 14.2 g/dL (12.0-15.0); Lymphocyte # 1.61 X10^3/ul (0.83-4.51); Lymphocyte % 26.9 % (19-41); Mean Corp Hgb Conc 31.6 g/dL (32-36); Mean Corpuscular Hgb 31.6 pg (27.0-32.0); Mean Corpuscular Volume 100.2 fL (81-99); Mean Platelet Vol. 11.6 fl (6.2-12.0); Monocyte# 0.48 X10^3/uL; NRBC Flagged by Analyzer 0 % (0-5); Neutrophil # 3.68 X10^3/uL (2.7-7.7); Neutrophil % 61.5 % (47-70); Platelet Count 200 K/mm3 (150-450); RBC Distribution Width CV 13.5 % (11.6-14.6); RBC Distribution Width SD 49.8 fl (35.1-43.9); Red Blood Count 4.49 M/mm3 (4.2-5.4)
[2021-01-23 17:57] LABS: Vitamin D,25 Hydroxy 44.8 ng/mL
[2021-01-23 18:28] LABS: ALB/GLOB Ratio 0.7 RATIO (0.9-2.4); AST(SGOT) 15 U/L (15-37); Alanine Aminotransfer ALT/SGPT 22 U/L (13-56); Albumin, Serum 3.4 g/dL (3.2-5.0); Alkaline Phosphatase 89 U/L (45-117); Anion Gap 4 (5-15); BUN 12 mg/dL (7-18); BUN/Creat Ratio 12.5 RATIO (10-20); Calcium,Total 8.7 mg/dL (8.5-10.1); Chloride 102 mmol/L (98-107); Cholesterol 160 mg/dL (200); Creatinine, Serum 0.96 mg/dL (0.55-1.02); EST Glomerular Filtration Rate 67 mL/min (>60); Est Glom Filt Rate - Afr Amer 81 mL/min (>60); Globulin 4.7 g/dL (2.2-4.2); Glucose 117 mg/dL (74-106); High Density Lipoprotein 39 mg/dL; Potassium 4.1 mmol/L (3.5-5.1); Protein, Total 8.1 g/dL (6.4-8.2); Sodium Level 139 mmol/L (136-145); T4 Free Direct 0.72 ng/dL (0.76-1.46); Triglycerides 116 mg/dL; Very Low Density Lipoprotein 23 mg/dL (5-40)
[2021-01-25 16:09] LABS: PROEL- A/G Ratio 0.8 (0.7-1.7); PROEL- Albumin 3.5 g/dL (2.9-4.4); PROEL- Alpha-1 Globulin 0.3 g/dL (0.0-0.4); PROEL- Alpha-2 Globulin 0.9 g/dL (0.4-1.0); PROEL- Beta Globulin 1.3 g/dL (0.7-1.3); PROEL- Gamma Globulin 1.8 g/dL (0.4-1.8); PROEL- Globulin, Total 4.3 g/dL (2.2-3.9); PROEL- TOTAL PROTEIN 7.8 g/dL (6.0-8.5)
== END ==
PROVIDERS: PCP Family Medicine; Referring Provider Family Medicine; Visit Provider Family Medicine
DX: E88.09 Other disorders of plasma-protein metabolism, not elsewhere classified (principal); E03.8 Other specified hypothyroidism; E55.9 Vitamin D deficiency, unspecified
CPT/HCPCS: 36415; 80053; 80061; 82306; 84165; 84439; 84443; 85025

== ENCOUNTER → 2021-01-31 09:08 | Outpatient (CLI) | payer OTHER, SELFPAY ==
--- NOTE | 2021-01-31 09:10 | ECHOCS_ITS ---
Reason For Study: SOB Procedure This was a 2D Doppler, Color Flow transthoracic echocardiogram. The study was technically difficult. Contrast injection was performed. Exam performed in department. Left Ventricle Moderate concentric left ventricular hypertrophy. Based upon the 2D echocardiographic and contrast enhanced images obtained there appears to be grossly normal left ventricular size, wall motion, and systolic function. The estimated ejection fraction is 65 %. Transmitral doppler flow suggestive of impaired relaxation of left ventricle. Right Ventricle Based upon the 2D echocardiographic and contrast enhanced images obtained there appears to be grossly normal right ventricular size and systolic function. Atria The left atrium is not well visualized. The right atrium is not well visualized. No doppler evidence for ASD. Mitral Valve There is no mitral annular calcification. Normal mitral valve. Trivial mitral valve insufficiency. Tricuspid Valve Normal tricuspid valve. Trivial tricuspid valve insufficiency. Unable to estimate RV systolic pressure/pulmonary artery pressure due to technically difficult study. Aortic Valve The aortic valve is not well visualized. Pulmonic Valve The pulmonic valve is not well visualized. Great Vessels Normal sized aortic root. Pericardium/Pleural No pericardial effusion. Medication 22 gauge I.V. with prn adaptor inserted into right arm. Diluted definity 2ml given slow IV push to enhance endocardial definition. MMode/2D Measurements & Calculations LVIDd: 3.9 cm IVSd: 1.5 cm Ao root diam: 3.8 cm LVIDs: 2.1 cm LVPWd: 1.4 cm FS: 46.5 % LA dimension(2D): 4.5 cm Doppler Measurements & Calculations MV E max stephen: 67.6 cm/sec Lat Peak E' Stephen: 8.7 cm/sec Med Peak E' Stephen: 8.7 cm/sec MV A max stephen: 82.5 cm/sec E/E' lat: 7.8 E/E' med: 7.8 MV E/A: 0.82 Ao V2 max: 119.6 cm/sec LV V1 max: 97.0 cm/sec PA V2 max: 107.7 cm/sec Ao max P.7 mmHg LV V1 max P.8 mmHg ECHO/Echo Complete W/ Contrast Interpretation Summary The study was technically difficult. Contrast injection was performed. Based upon the 2D echocardiographic and contrast enhanced images obtained there appears to be grossly normal left ventricular size, wall motion, and systolic function. The estimated ejection fraction is 65 %. Moderate concentric left ventricular hypertrophy. Trivial mitral valve insufficiency. Trivial tricuspid valve insufficiency. Unable to estimate RV systolic pressure/pulmonary artery pressure due to techni javi difficult study. Transmitral doppler flow suggestive of impaired relaxation of left ventricle Ordering Physician: Landry Lowery Referring Physician: Landry Lowery Performed By: Joann Hernández RDCS
== END ==
PROVIDERS: PCP Family Medicine; Referring Provider Family Medicine; Visit Provider Family Medicine
DX: R06.02 Shortness of breath (principal)
CPT/HCPCS: 93306; Q9957; A4216; C8929; J3490

== ENCOUNTER → 2021-02-08 14:49 | Outpatient (CLI) | payer OTHER, SELFPAY ==
--- NOTE | 2021-02-08 15:07 | BI_ITS ---
MAMMOGRAPHY - BILATERAL SCREENING REASON FOR EXAM: Female, 45 years old. Routine annual screening examination. PERTINENT HISTORY: Baseline screening TECHNIQUE: Digital bilateral breast giovany (3D mammographic acquisition) in the CC and MLO projections. 2-D mediolateral oblique (MLO) and craniocaudad (CC) views of both breasts were obtained. CAD: Full Field Digital Mammography with Computer Added Detection was performed. COMPARISON: None. FINDINGS: Breast Composition: Fatty There are no dominant masses or suspicious calcifications. No other significant abnormalities are identified. BI/SCRN MAMM (CAD)W/GIOVANY BILAT IMPRESSION: Stable bilateral screening mammogram. Yearly follow-up mammogram recommended. (A) ASSESSMENT CATEGORY: BIRADS Category 1: Negative. A letter regarding these results will be sent to the patient by the facility within 30 days. Approximately 10% of breast cancers are not detected by mammography. A normal mammogram should not delay biopsy of a clinically suspicious abnormality. [id number] Electronically Signed: Landry Wilks DO at 8:59 EDT Tel , Service support ,
== END ==
PROVIDERS: PCP Family Medicine; Referring Provider Family Medicine; Visit Provider Family Medicine
DX: Z12.31 Encounter for screening mammogram for malignant neoplasm of breast (principal)
CPT/HCPCS: 77063; 77067

== ENCOUNTER → 2021-06-11 11:21 | Outpatient (CLI) | payer OTHER, SELFPAY ==
[2021-06-11 15:04] LABS: Absolute Lymphocyte Count 1.55 X10^3/uL (0.83-4.51); Absolute Neutrophil Count 2.8 X10^3/uL (2.0-7.7); Basophil# 0.02 X10^3/uL; Basophil% 0.4 % (0-1); Eosinophil# 0.13 X10^3/uL; Eosinophils% 2.7 % (0-5); Hematocrit 43.5 % (37-47); Hemoglobin 14.4 g/dL (12.0-15.0); Lymphocyte # 1.55 X10^3/ul (0.83-4.51); Lymphocyte % 32.3 % (19-41); Mean Corp Hgb Conc 33.1 g/dL (32-36); Mean Corpuscular Hgb 31.2 pg (27.0-32.0); Mean Corpuscular Volume 94.2 fL (81-99); Mean Platelet Vol. 11.2 fl (6.2-12.0); Monocyte# 0.34 X10^3/uL; Monocyte% 7.1 % (0-10); NRBC Flagged by Analyzer 0 % (0-5); Neutrophil # 2.75 X10^3/uL (2.7-7.7); Neutrophil % 57.3 % (47-70); Platelet Count 188 K/mm3 (150-450); RBC Distribution Width CV 13.1 % (11.6-14.6); RBC Distribution Width SD 44.8 fl (35.1-43.9); Red Blood Count 4.62 M/mm3 (4.2-5.4); White Blood Count 4.8 K/mm3 (4.4-11.0)
[2021-06-11 15:30] LABS: Vitamin D,25 Hydroxy 43.3 ng/mL
[2021-06-11 15:35] LABS: ALB/GLOB Ratio 0.7 RATIO (0.9-2.4); AST(SGOT) 20 U/L (15-37); Alanine Aminotransfer ALT/SGPT 29 U/L (13-56); Albumin, Serum 3.1 g/dL (3.2-5.0); Alkaline Phosphatase 73 U/L (45-117); Anion Gap 7 (5-15); BUN 15 mg/dL (7-18); BUN/Creat Ratio 19.1 RATIO (10-20); Calcium,Total 8.9 mg/dL (8.5-10.1); Chloride 106 mmol/L (98-107); Cholesterol 145 mg/dL (200); Creatinine, Serum 0.79 mg/dL (0.55-1.02); EST Glomerular Filtration Rate 85 mL/min (>60); Est Glom Filt Rate - Afr Amer 103 mL/min (>60); Globulin 4.6 g/dL (2.2-4.2); Glucose 118 mg/dL (74-106); High Density Lipoprotein 37 mg/dL; Potassium 3.9 mmol/L (3.5-5.1); Protein, Total 7.7 g/dL (6.4-8.2); Sodium Level 141 mmol/L (136-145); Triglycerides 125 mg/dL; Very Low Density Lipoprotein 25 mg/dL (5-40)
[2021-06-14 10:46] LABS: T4 Free Direct 1.15 ng/dL (0.76-1.46); Thyroid Stim Hormone (TSH) 0.13 uIU/mL (0.358-3.74)
== END ==
PROVIDERS: PCP Family Medicine; Referring Provider Family Medicine; Visit Provider Family Medicine
DX: E03.9 Hypothyroidism, unspecified (principal); E55.9 Vitamin D deficiency, unspecified; E78.5 Hyperlipidemia, unspecified
CPT/HCPCS: 36415; 80053; 80061; 82306; 84439; 84443; 85025

== ENCOUNTER → 2021-07-03 07:08 | Outpatient (CLI) | payer OTHER, SELFPAY ==
--- NOTE | 2021-07-03 09:49 | STRESSREP ---
Stress Test Report Date: 07-03-2021 Procedure: Pharmacologic stress nuclear imaging study Indications: Dyspnea on exertion; chest pain; abnormal ECG Consent: Per the patient Procedure: The patient underwent pharmacologic (Regadenoson 0.4mg ) evaluation with a peak heart rate of 103 beats per minute (58%predicted maximal heart rate) and a peak blood pressure of 160/92 mmHg. The baseline ECG demonstrated normal sinus rhythm. The peak pharmacologic ECG demonstrated no obvious ECG changes. There was an isolated PAC during infusion. There was no complaint of chest discomfort during pharmacologic infusion or recovery. The examination was discontinued secondary to completion of protocol. Impression: 1. Pharmacologic (Regadenoson) evaluation 2. Peak pharmacologic ECG with no obvious ECG changes. 3. There was an isolated PAC during infusion. 4. Nuclear images pending Myocardial perfusion imaging study: Technique: The patient was injected with 15.0 millicuries of technetium 99m Cardiolite and subsequently rest SPECT Cardiolite nuclear imaging was obtained in the horizontal long, vertical long, and short axis views. The patient underwent pharmacologic (Regadenoson) evaluation with a peak heart rate of 103 beats per minute (58% percent predicted maximal heart rate) and a peak blood pressure of 150/92 mmHg. The patient was injected with 44.7 millicuries of technetium 99m Cardiolite and subsequently stress SPECT Cardiolite nuclear imaging was obtained in the horizontal long, vertical long, and short axis views. A gated Cardiolite study at peak stress was obtained. Interpretation: Rest and stress SPECT Cardiolite nuclear imaging status post realignment, normalization, and attenuation correction demonstrate the appearance at rest of diminished myocardial perfusion/tracer uptake in portions of the mid to distal anterior, distal anteroseptal, and anteroapical segments which status post stress appear to be less prominent. There is end systolic thickening and brightening. The gated Cardiolite study demonstrates myocardial thickening and inward wall motion. The reported LVEF is 74%. Impression: 1. Rest and stress SPECT cardiac nuclear imaging demonstrate myocardial perfusion changes appearing more prominent at rest as opposed to stress being considered compatible with effects of shifting soft tissue/breast attenuation with no myocardial perfusion changes considered diagnostic for associated stress-induced myocardial ischemia. 2. The gated Cardiolite study reports an LVEF of 74%. This note was generated with [employer] software. It may contain incorrect words, spelling, and punctuation that were not noted in checking the note before signing.
== END ==
PROVIDERS: PCP Family Medicine; Referring Provider Internal Medicine Cardiovascular Disease; Visit Provider Internal Medicine Cardiovascular Disease
DX: R06.00 Dyspnea, unspecified (principal); I51.7 Cardiomegaly; R94.31 Abnormal electrocardiogram [ECG] [EKG]; E78.5 Hyperlipidemia, unspecified; Z82.49 Family history of ischemic heart disease and other diseases of the circulatory system
CPT/HCPCS: 78452; 93017; A9500; A4216; J2785

== ENCOUNTER 2021-09-06 08:47 | Outpatient (CLI) | payer OTHER, SELFPAY ==
[2021-09-06 10:30] LABS: ALB/GLOB Ratio 0.7 RATIO (0.9-2.4); AST(SGOT) 12 U/L (15-37); Alanine Aminotransfer ALT/SGPT 20 U/L (13-56); Albumin, Serum 3.1 g/dL (3.2-5.0); Alkaline Phosphatase 78 U/L (45-117); Anion Gap 1 (5-15); BUN 11 mg/dL (7-18); BUN/Creat Ratio 12.4 RATIO (10-20); Calcium,Total 8.8 mg/dL (8.5-10.1); Chloride 108 mmol/L (98-107); Cholesterol 163 mg/dL (200); Creatinine, Serum 0.89 mg/dL (0.55-1.02); EST Glomerular Filtration Rate 73 mL/min (>60); Est Glom Filt Rate - Afr Amer 89 mL/min (>60); Globulin 4.7 g/dL (2.2-4.2); Glucose 117 mg/dL (74-106); High Density Lipoprotein 39 mg/dL; Protein, Total 7.8 g/dL (6.4-8.2); Sodium Level 140 mmol/L (136-145); T4 Free Direct 1.34 ng/dL (0.76-1.46); Thyroid Stim Hormone (TSH) 1.16 uIU/mL (0.358-3.74); Triglycerides 140 mg/dL; Very Low Density Lipoprotein 28 mg/dL (5-40)
[2021-09-06 10:54] LABS: Vitamin D,25 Hydroxy 50.1 ng/mL
== END 2021-09-06 23:59 | disposition home or self-care (01) ==
LOC: MFPLAB 08:48
PROVIDERS: PCP Family Medicine; Referring Provider Family Medicine; Visit Provider Family Medicine
DX: E03.8 Other specified hypothyroidism (principal); E55.9 Vitamin D deficiency, unspecified; E78.5 Hyperlipidemia, unspecified
CPT/HCPCS: 36415; 80053; 80061; 82306; 84439; 84443

== ENCOUNTER → 2022-01-23 | Outpatient (CLI) | payer OTHER, SELFPAY ==
[2022-01-23 10:10] LABS: Absolute Neutrophil Count 3.9 X10^3/uL (2.0-7.7); Basophil# 0.02 X10^3/uL; Basophil% 0.3 % (0-1); Eosinophil# 0.12 X10^3/uL; Eosinophils% 1.9 % (0-5); Hematocrit 44.5 % (37-47); Hemoglobin 14.4 g/dL (12.0-15.0); Lymphocyte % 27.5 % (19-41); Mean Corp Hgb Conc 32.4 g/dL (32-36); Mean Corpuscular Volume 102.1 fL (81-99); Mean Platelet Vol. 11.2 fl (6.2-12.0); Monocyte# 0.45 X10^3/uL; Monocyte% 7.3 % (0-10); NRBC Flagged by Analyzer 0 % (0-5); Neutrophil # 3.87 X10^3/uL (2.7-7.7); Neutrophil % 62.7 % (47-70); Platelet Count 162 K/mm3 (150-450); RBC Distribution Width CV 13.7 % (11.6-14.6); RBC Distribution Width SD 52.1 fl (35.1-43.9); Red Blood Count 4.36 M/mm3 (4.2-5.4); White Blood Count 6.2 K/mm3 (4.4-11.0)
[2022-01-23 10:42] LABS: ALB/GLOB Ratio 0.7 RATIO (0.9-2.4); AST(SGOT) 20 U/L (15-37); Alanine Aminotransfer ALT/SGPT 30 U/L (13-56); Albumin, Serum 3.3 g/dL (3.2-5.0); Alkaline Phosphatase 78 U/L (45-117); Anion Gap 2 (5-15); BUN 13 mg/dL (7-18); BUN/Creat Ratio 14.9 RATIO (10-20); Calcium,Total 8.8 mg/dL (8.5-10.1); Chloride 105 mmol/L (98-107); Cholesterol 130 mg/dL (200); Creatinine, Serum 0.87 mg/dL (0.55-1.02); EST Glomerular Filtration Rate 75 mL/min (>60); Est Glom Filt Rate - Afr Amer 91 mL/min (>60); Globulin 4.8 g/dL (2.2-4.2); Glucose 111 mg/dL (74-106); High Density Lipoprotein 43 mg/dL; Potassium 4.1 mmol/L (3.5-5.1); Protein, Total 8.1 g/dL (6.4-8.2); Sodium Level 141 mmol/L (136-145); T4 Free Direct 1.32 ng/dL (0.76-1.46); Thyroid Stim Hormone (TSH) 4.18 uIU/mL (0.358-3.74); Triglycerides 90 mg/dL; Very Low Density Lipoprotein 18 mg/dL (5-40); Vitamin D,25 Hydroxy 47.7 ng/mL
== END | disposition home or self-care (01) ==
LOC: MFPLAB 09:32
PROVIDERS: PCP Family Medicine; Referring Provider Family Medicine; Visit Provider Family Medicine
DX: E55.9 Vitamin D deficiency, unspecified (principal); E78.5 Hyperlipidemia, unspecified; E03.9 Hypothyroidism, unspecified
CPT/HCPCS: 36415; 80053; 80061; 82306; 84439; 84443; 85025

== ENCOUNTER → 2022-04-01 | Outpatient (CLI) | payer OTHER, SELFPAY ==
--- NOTE | 2022-04-03 06:50 | PFT ---
INTRODUCTION: The patient is a 46-year-old female that presents for pulmonary function studies secondary to a diagnosis of shortness of breath. Respiratory therapy reported good patient effort. Bronchodilators were used during testing. INTERPRETATION: Forced expiration spirometry demonstrates no evidence of a large airways obstructive ventilatory defect. There was no significant response to aerosolized bronchodilators. Spirograms are of good quality and plateau normally. Body plethysmography was performed and demonstrated a decreased TLC to 3.15 L, 50% of predicted, indicative of a severe restrictive ventilatory impairment. The remainder of the lung volumes are symmetrically reduced. Diffusing capacity by single breath CO is mildly reduced at 70% of predicted. IMPRESSION: Severe restrictive ventilatory impairment with mild reduction in diffusing capacity.
== END | disposition home or self-care (01) ==
LOC: PSN 12:58
PROVIDERS: PCP Family Medicine; Referring Provider Internal Medicine Critical Care Medicine; Visit Provider Internal Medicine Critical Care Medicine
DX: R06.02 Shortness of breath (principal)
CPT/HCPCS: 94060; 94726; 94729

== ENCOUNTER → 2022-04-03 | Outpatient (CLI) | payer OTHER, SELFPAY ==
[2022-04-03 13:07] VITALS: PULSE 100; PULSE 103; PULSE 115; PULSE 122; PULSE 130; PULSE 131; O2SAT 89; O2SAT 90; O2SAT 94; O2SAT 95; O2SAT 96
--- NOTE | 2022-04-04 07:42 | WT_ITS ---
PSN 6 Minute Walk Test 6 Minute Walk Test 6 Minute Walk Test: 6 Minute Walk Test PSN:6-Minute Walk Test Start: 04/03/22 13:06 Freq: Status: Active Protocol: [id number].6MINW Document 04/03/22 13:07 [facility] (Rec: 04/03/22 13:10 [facility] [id number]) 6 Minute Walk Test Date Performed 04/03/22 Time Performed 12:30 Height 5 ft 10 in Weight: 403 lb Weight in Pounds [address]: Elie Vargas Assistive device used: None Pre-test Oxygen Delivery Method Room Air Pulse Ox (%) 95 Pulse Rate (60-100 beats/min) 100 Dyspnea Brigid Scale (0-10) 0 1st minute Oxygen Delivery Method Room Air Pulse Ox (%) 94 Pulse Rate (60-100 beats/min) 115 H Dyspnea Brigid Scale (0-10) 2 Number of Rests Taken 0 2nd minute Oxygen Delivery Method Room Air Pulse Ox (%) 94 Pulse Rate (60-100 beats/min) 122 H Dyspnea Brigid Scale (0-10) 2 Number of Rests Taken 0 3rd minute Oxygen Delivery Method Room Air Pulse Ox (%) 90 Pulse Rate (60-100 beats/min) 130 H Dyspnea Brigid Scale (0-10) 3 Number of Rests Taken 0 Reported Symptoms Increased Work of Breathing 4th minute Oxygen Delivery Method Room Air Pulse Ox (%) 89 Pulse Rate (60-100 beats/min) 131 H Dyspnea Brigid Scale (0-10) 3 Number of Rests Taken 1 Reported Symptoms Increased Work of Breathing 5th minute Oxygen Delivery Method Room Air Pulse Ox (%) 89 Pulse Rate (60-100 beats/min) 130 H Dyspnea Brigid Scale (0-10) 3 Number of Rests Taken 0 Reported Symptoms Increased Work of Breathing 6th minute Oxygen Delivery Method Room Air Pulse Ox (%) 90 Pulse Rate (60-100 beats/min) 131 H Dyspnea Brigid Scale (0-10) 3 Number of Rests Taken 0 Reported Symptoms Increased Work of Breathing Post-test Oxygen Delivery Method Room Air Pulse Ox (%) 96 Pulse Rate (60-100 beats/min) 103 H Dyspnea Brigid Scale (0-10) 0 Full Laps Walked 16 Partial Lap, Number of Tiles Walked 0 Total Distance Walked (ft) 944 Interpretation Interpretation: The patient ambulated 944 feet over the course of 6 minutes beginning on room air without assistive devices. Pretesting oxygen saturation was noted to be 95% on room air. With ambulation, the bridgette oxygen saturation was 89%. This represents a significant exertional oxygen desaturation, consistent with a pulmonary limitation to exercise tolerance. Recommendations Recommendations: There is no indication for the use of supplemental oxygen at this time. However, close interval follow-up is recommended, given the degree of oxygen desaturation noted during this study.
== END | disposition home or self-care (01) ==
LOC: PSN 12:35
PROVIDERS: PCP Family Medicine; Referring Provider Internal Medicine Critical Care Medicine; Visit Provider Internal Medicine Critical Care Medicine
DX: R06.02 Shortness of breath (principal)
CPT/HCPCS: 94618

== ENCOUNTER → 2022-06-25 | Outpatient (CLI) | payer OTHER, SELFPAY ==
[2022-06-25 17:55] LABS: Absolute Lymphocyte Count 1.69 X10^3/uL (0.83-4.51); Absolute Neutrophil Count 3.4 X10^3/uL (2.0-7.7); Basophil# 0.03 X10^3/uL; Basophil% 0.5 % (0-1); Eosinophil# 0.12 X10^3/uL; Lymphocyte # 1.69 X10^3/ul (0.83-4.51); Lymphocyte % 28.7 % (19-41); Mean Corp Hgb Conc 33.3 g/dL (32-36); Mean Corpuscular Hgb 34.2 pg (27.0-32.0); Mean Corpuscular Volume 102.7 fL (81-99); Mean Platelet Vol. 11.7 fl (6.2-12.0); Monocyte% 10.2 % (0-10); NRBC Flagged by Analyzer 0 % (0-5); Neutrophil # 3.44 X10^3/uL (2.7-7.7); Neutrophil % 58.4 % (47-70); Platelet Count 183 K/mm3 (150-450); RBC Distribution Width CV 13.2 % (11.6-14.6); RBC Distribution Width SD 50.5 fl (35.1-43.9); Red Blood Count 4.09 M/mm3 (4.2-5.4); White Blood Count 5.9 K/mm3 (4.4-11.0)
[2022-06-25 18:24] LABS: Hemoglobin A1c 5.6 % (3.8-5.6)
[2022-06-25 18:27] LABS: ALB/GLOB Ratio 0.7 RATIO (0.9-2.4); AST(SGOT) 9 U/L (15-37); Alanine Aminotransfer ALT/SGPT 19 U/L (13-56); Albumin, Serum 3.2 g/dL (3.2-5.0); Alkaline Phosphatase 69 U/L (45-117); Anion Gap 4 (5-15); BUN 11 mg/dL (7-18); BUN/Creat Ratio 14.3 RATIO (10-20); Calcium,Total 8.4 mg/dL (8.5-10.1); Chloride 104 mmol/L (98-107); Cholesterol 129 mg/dL (200); Creatinine, Serum 0.77 mg/dL (0.55-1.02); EST Glomerular Filtration Rate 87 mL/min (>60); Est Glom Filt Rate - Afr Amer 105 mL/min (>60); Globulin 4.3 g/dL (2.2-4.2); Glucose 79 mg/dL (74-106); High Density Lipoprotein 38 mg/dL; Potassium 4.3 mmol/L (3.5-5.1); Protein, Total 7.5 g/dL (6.4-8.2); Sodium Level 139 mmol/L (136-145); T4 Free Direct 1.23 ng/dL (0.76-1.46); Thyroid Stim Hormone (TSH) 8.05 uIU/mL (0.358-3.74); Triglycerides 129 mg/dL; Very Low Density Lipoprotein 26 mg/dL (5-40)
[2022-06-25 18:30] LABS: Vitamin D,25 Hydroxy 44.7 ng/mL
== END | disposition home or self-care (01) ==
LOC: MFPLAB 16:19
PROVIDERS: PCP Family Medicine; Referring Provider Family Medicine; Visit Provider Family Medicine
DX: G47.33 Obstructive sleep apnea (adult) (pediatric) (principal); E78.5 Hyperlipidemia, unspecified; R73.09 Other abnormal glucose; E03.9 Hypothyroidism, unspecified; E55.9 Vitamin D deficiency, unspecified
CPT/HCPCS: 36415; 80053; 80061; 82306; 83036; 84439; 84443; 85025

== ENCOUNTER → 2022-09-23 | Outpatient (CLI) | payer OTHER, SELFPAY ==
[2022-09-23 17:42] LABS: Absolute Lymphocyte Count 1.79 X10^3/uL (0.83-4.51); Absolute Neutrophil Count 4.2 X10^3/uL (2.0-7.7); Basophil# 0.02 X10^3/uL; Basophil% 0.3 % (0-1); Eosinophil# 0.11 X10^3/uL; Eosinophils% 1.7 % (0-5); Hematocrit 44.5 % (37-47); Hemoglobin 14.3 g/dL (12.0-15.0); Lymphocyte # 1.79 X10^3/ul (0.83-4.51); Lymphocyte % 27.2 % (19-41); Mean Corp Hgb Conc 32.1 g/dL (32-36); Mean Corpuscular Hgb 31.2 pg (27.0-32.0); Mean Corpuscular Volume 96.9 fL (81-99); Mean Platelet Vol. 10.8 fl (6.2-12.0); Monocyte# 0.47 X10^3/uL; Monocyte% 7.2 % (0-10); NRBC Flagged by Analyzer 0 % (0-5); Neutrophil # 4.17 X10^3/uL (2.7-7.7); Neutrophil % 63.4 % (47-70); Platelet Count 208 K/mm3 (150-450); RBC Distribution Width CV 12.8 % (11.6-14.6); RBC Distribution Width SD 45.4 fl (35.1-43.9); Red Blood Count 4.59 M/mm3 (4.2-5.4); White Blood Count 6.6 K/mm3 (4.4-11.0)
[2022-09-23 18:46] LABS: Vitamin D,25 Hydroxy 63.6 ng/mL
[2022-09-23 19:01] LABS: Cholesterol 106 mg/dL (200); High Density Lipoprotein 38 mg/dL; Thyroid Stim Hormone (TSH) 0.11 uIU/mL (0.358-3.74); Triglycerides 122 mg/dL; Very Low Density Lipoprotein 24 mg/dL (5-40)
== END | disposition home or self-care (01) ==
LOC: MFPLAB 16:33
PROVIDERS: PCP Family Medicine; Visit Provider Family Medicine
DX: E03.9 Hypothyroidism, unspecified (principal); E78.5 Hyperlipidemia, unspecified; E55.9 Vitamin D deficiency, unspecified
CPT/HCPCS: 36415; 80061; 82306; 84439; 84443; 85025

== ENCOUNTER → 2022-11-26 | Outpatient (CLI) | payer OTHER, SELFPAY ==
--- NOTE | 2022-11-26 11:24 | NEURO ---
NCS and/or EMG Patient Report Ordering Doctor: Landry Lowery DATE OF SERVICE: 11/26/22 Tonie presents for electrodiagnostic testing of the upper limbs. She reports numbness and tingling in both hands, worse on the left side and worse over the past 2 months. Electrodiagnostic findings: Left median motor nerve demonstrates prolonged distal latency with normal amplitude and reduced conduction velocity. Right median motor nerve demonstrates prolonged distal latency with normal amplitude and reduced conduction velocity. Normal ulnar motor response bilaterally. Prolonged left median F wave. On needle EMG, all muscles tested in the upper limbs showed no evidence of denervation with normal motor unit action potentials. Electrodiagnostic impression: This is an abnormal study in the upper limbs. 1. Electrodiagnostic findings suggestive of bilateral median mononeuropathy. This is consistent with a moderate to advanced left carpal tunnel syndrome and a mild to moderate right carpal tunnel syndrome. 2. No electrodiagnostic evidence is noted for cervical radiculopathy. Procedures Neurology CF Procedures [id number]: 44645-69 Nrv cndj test 13/> studies (interp) Multi Select Codes Neurology Neurology Interp Codes: 30292-21 Musc test done w/n test comp (interp) (2 ) and 97802-12 Nrv cndj test 13/> studies (interp)
== END | disposition home or self-care (01) ==
LOC: PSN 09:53
PROVIDERS: PCP Family Medicine; Referring Provider Family Medicine; Visit Provider Family Medicine
DX: G56.00 Carpal tunnel syndrome, unspecified upper limb (principal)
CPT/HCPCS: 95886; 95913

== ENCOUNTER → 2022-12-02 | Outpatient (CLI) | payer OTHER, SELFPAY | END | disposition home or self-care (01) | LOC: SL 13:34 | PROVIDERS: PCP Family Medicine; Referring Provider Internal Medicine Critical Care Medicine; Visit Provider Internal Medicine Critical Care Medicine | DX: G47.33 Obstructive sleep apnea (adult) (pediatric) (principal); R06.02 Shortness of breath | CPT/HCPCS: 98960; G0463 ==

== ENCOUNTER → 2022-12-09 | Outpatient (CLI) | payer OTHER, SELFPAY ==
[2022-12-09 13:18] VITALS: PULSE 112; PULSE 113; PULSE 120; PULSE 123; PULSE 127; PULSE 129; PULSE 84; PULSE 87; O2SAT 89; O2SAT 91; O2SAT 92; O2SAT 94; O2SAT 95
--- NOTE | 2022-12-10 07:31 | PCM.PSN.6M ---
PSN 6 Minute Walk Test 6 Minute Walk Test 6 Minute Walk Test: 6 Minute Walk Test PSN:6-Minute Walk Test Start: 12/09/22 13:16 Freq: Status: Active Protocol: RESP.6MINW Document 12/09/22 13:18 INDIGO (Rec: 12/09/22 13:20 INDIGO [id number]) 6 Minute Walk Test Date Performed 12/09/22 Time Performed 13:00 Height 5 ft 11 in Weight: 423 lb Weight in Pounds 423.[address]: Elie Vargas Assistive device used: None Pre-test Oxygen Delivery Method Room Air Pulse Ox (%) 94 Pulse Rate (60-100 beats/min) 84 Dyspnea Brigid Scale (0-10) 0 Exertion Brigid Scale (6-20) 6 1st minute Oxygen Delivery Method Room Air Pulse Ox (%) 95 Pulse Rate (60-100 beats/min) 112 H 2nd minute Oxygen Delivery Method Room Air Pulse Ox (%) 92 Pulse Rate (60-100 beats/min) 113 H 3rd minute Oxygen Delivery Method Room Air Pulse Ox (%) 91 Pulse Rate (60-100 beats/min) 123 H 4th minute Oxygen Delivery Method Room Air Pulse Ox (%) 89 Pulse Rate (60-100 beats/min) 127 H Number of Rests Taken 1 5th minute Oxygen Delivery Method Room Air Pulse Ox (%) 91 Pulse Rate (60-100 beats/min) 120 H 6th minute Oxygen Delivery Method Room Air Pulse Ox (%) 92 Pulse Rate (60-100 beats/min) 129 H Dyspnea Brigid Scale (0-10) 4 Exertion Brigid Scale (6-20) 14 Post-test Oxygen Delivery Method Room Air Pulse Ox (%) 95 Pulse Rate (60-100 beats/min) 87 Full Laps Walked 14 Partial Lap, Number of Tiles Walked 37 Total Distance Walked (ft) 863 Interpretation Interpretation: The patient ambulated 863 feet over the course of 6 minutes beginning on room air without assistive devices. Pretesting oxygen saturation was noted to be 94% on room air. With ambulation, the bridgette oxygen saturation was 89%. This represents a significant exertional oxygen desaturation, consistent with a pulmonary limitation to exercise tolerance. Recommendations Recommendations: There is no indication for the use of supplemental oxygen at this time. However, close interval follow-up was recommended, given the degree of oxygen desaturation noted during this study.
== END | disposition home or self-care (01) ==
LOC: PSN 12:49
PROVIDERS: PCP Family Medicine; Referring Provider Internal Medicine Critical Care Medicine; Visit Provider Internal Medicine Critical Care Medicine
DX: R06.02 Shortness of breath (principal); G47.33 Obstructive sleep apnea (adult) (pediatric)
CPT/HCPCS: 94618

== ENCOUNTER → 2023-01-01 | Outpatient (CLI) | payer OTHER, SELFPAY ==
[2023-01-01 17:45] LABS: Absolute Lymphocyte Count 1.73 X10^3/uL (0.83-4.51); Absolute Neutrophil Count 3.8 X10^3/uL (2.0-7.7); Basophil# 0.03 X10^3/uL; Basophil% 0.5 % (0-1); Eosinophil# 0.11 X10^3/uL; Eosinophils% 1.8 % (0-5); Hematocrit 43.1 % (37-47); Hemoglobin 14.2 g/dL (12.0-15.0); Lymphocyte # 1.73 X10^3/ul (0.83-4.51); Lymphocyte % 28.2 % (19-41); Mean Corp Hgb Conc 32.9 g/dL (32-36); Mean Corpuscular Hgb 33.2 pg (27.0-32.0); Mean Corpuscular Volume 100.7 fL (81-99); Mean Platelet Vol. 11.7 fl (6.2-12.0); Monocyte# 0.42 X10^3/uL; Monocyte% 6.9 % (0-10); NRBC Flagged by Analyzer 0 % (0-5); Neutrophil # 3.83 X10^3/uL (2.7-7.7); Neutrophil % 62.4 % (47-70); Platelet Count 156 K/mm3 (150-450); RBC Distribution Width CV 13.8 % (11.6-14.6); RBC Distribution Width SD 50.8 fl (35.1-43.9); Red Blood Count 4.28 M/mm3 (4.2-5.4); White Blood Count 6.1 K/mm3 (4.4-11.0)
[2023-01-01 18:29] LABS: ALB/GLOB Ratio 0.7 RATIO (0.9-2.4); AST(SGOT) 13 U/L (15-37); Alanine Aminotransfer ALT/SGPT 23 U/L (13-56); Albumin, Serum 3.4 g/dL (3.2-5.0); Alkaline Phosphatase 77 U/L (45-117); Anion Gap 3 (5-15); BUN 13 mg/dL (7-18); BUN/Creat Ratio 16.4 RATIO (10-20); Calcium,Total 8.8 mg/dL (8.5-10.1); Chloride 106 mmol/L (98-107); Cholesterol 136 mg/dL (200); Creatinine, Serum 0.79 mg/dL (0.55-1.02); EST Glomerular Filtration Rate 83 mL/min (>60); Est Glom Filt Rate - Afr Amer 101 mL/min (>60); Globulin 4.6 g/dL (2.2-4.2); Glucose 113 mg/dL (74-106); High Density Lipoprotein 36 mg/dL; Potassium 4.5 mmol/L (3.5-5.1); Sodium Level 140 mmol/L (136-145); T4 Free Direct 1.07 ng/dL (0.76-1.46); Triglycerides 162 mg/dL; Very Low Density Lipoprotein 32 mg/dL (5-40)
== END | disposition home or self-care (01) ==
LOC: MFPLAB 14:28
PROVIDERS: PCP Family Medicine; Visit Provider Family Medicine
DX: E66.01 Morbid (severe) obesity due to excess calories (principal); E55.9 Vitamin D deficiency, unspecified; E03.9 Hypothyroidism, unspecified
CPT/HCPCS: 36415; 80053; 80061; 82306; 84439; 84443; 85025

== ENCOUNTER 2023-01-28 05:41 | Day surgery (SDC) | payer OTHER, SELFPAY ==
[2023-01-28] VITALS (7 sets, daily range): BP systolic 129–148; BP diastolic 66–89; PULSE 81–92; RESP 16–18; TEMP 36.1–37; O2SAT 92–94; BMI 58.7
[2023-01-28] MEDS: Lactated Ringers 1,000 ML 15 ML IV (06:21)
--- NOTE | 2023-01-28 07:11 | HP.PCM_ITS ---
HPI - General HPI Narrative TONIE OLIVERA, is a 47 F who presents for left endoscopic carpal tunnel release. Patient is wondering about return to work and when we can do the other side. Usually at 6 weeks post op. I marked the left wrist. Updated the consent form. Discussed pros and cons risks and benefits of proceeding. Patient ready to go ahead. No history of changes to the history and physical exam. Discussed postoperative pain control typically with oral weik-[id number]-[id number] medications no narcotics. Recommend gentle range of motion of the hand no heavy lifting or gripping after surgery and follow-up in the office in 2 days time. MR#: [id number] Acct: [id number] Name: TONIE OLIVERA Rep #: [id number] : 1975 Provider: Dr. Arie Gallegos MD Age/Sex: 46/F Location: [facility] [place] Status: Signed Intake Vital Signs 12/04/2312:27 Height 5 ft 10 in Weight: 423 lb BMI 60.7 Intake Visit Reasons: BL HANDS Is patient in pain?: Yes Allergies sulfamethoxazole [From Bactrim] Allergy (Mild, Verified 12/04/22 13:24) Rashtrimethoprim [From Bactrim] Allergy (Mild, Verified 12/04/22 13:24) Rashlisinopril Adverse Reaction (Intermediate, Verified 12/04/22 13:24) cough Medications atorvastatin 20 mg tablet (Lipitor) 20 mg PO QDAY 11/06/17 [History Confirmed 12/04/22] cholecalciferol (vitamin D3) 1,250 mcg (50,000 unit) capsule 50,000 unit PO QWEEK 11/06/17 [History Confirmed 12/04/22] levothyroxine 300 mcg tablet 300 mcg PO DAILY 08/26/21 [History Confirmed 12/04/22] levothyroxine 75 mcg tablet 75 mcg PO DAILY 08/26/21 [History Confirmed 12/04/22] valsartan 80 mg tablet 80 mg PO DAILY 08/26/21 [History Confirmed 12/04/22] [facility] Medical History Bilateral carpal tunnel syndrome Dyspnea on exertion Mono's disease Hyperlipidemia Hypothyroidism Impaired glucose tolerance Left ventricular hypertrophy Lymphedema Morbid obesity ABHIJIT (obstructive sleep apnea) PCOS (polycystic ovarian syndrome) Peripheral edema Vitamin D deficiency Surgical History H/O thyroidectomy History of hysteroscopy Tubal ligation status Family History Father Pulmonary fibrosis S/P triple vessel bypass, Onset Age: 48 H/O heart artery stent CAD (coronary artery disease)Mother Thyroid disorder Uterine cancer Thyroid cancerGrandmother CAD (coronary artery disease) Myocardial infarction Social History number of children: 2 Smoking Status: Never smoker alcohol intake: current alcohol intake frequency: holidays/special occasions only substance use type: does not use caffeine: Yes Type: coffee Number of servings: 4 HPI BL HANDS Details: Parts of this documentation were recorded by a scribe, this documentation accurately reflects the service provided and the decisions made by me, Dr. Arie Gallegos MD 12/04/22 9744. TONIE OLIVERA is a 46 year old F here today for bilateral hand numbness ... 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 Fingers numb index and thumb and then to the middle, pain in the first 3. Did not try night splinting,. but getting worse on the left side. no diabetes, gets checked 1 3 months. Ortho Exam General General: Yes no acute distress Neurologic: Yes alert and Yes oriented x3 Psychologic: Yes reasonable and appropriate Right Wrist/Hand Skin/Wound: Yes CDI, No Swelling, No Ecchymosis, Yes nail intact and Yes capillary refill normal Right Wrist: Yes ROM-Extension 0-60, ROM-Flexion 0-80, ROM-Pronation 0-80, ROM- Supination 0-90, Phalen's and Thenar Atrophy; No Tinel's, Tender to palpate triangular fibrocartilage complex or Distal radioulnar joint Motor: EPL: 5, FDP-2: 5, 1st Dorsal Interosseous: 5 and APB: 5 Sensation: Radial: I, Ulnar: I and Median: D WRIST: neg tinels at elbow and wrist bilat Left Wrist/Hand Skin/Wound: No Swelling, No Ecchymosis, Yes nail intact, Yes capillary refill normal and No erythema Left Wrist: Yes ROM-Extension 0-60, Yes ROM-Flexion 0-80, Yes ROM-Pronation 0- 80, Yes ROM-Supination 0-90, Yes Phalen's and Yes Thenar Atrophy; No Tinel's Motor: EPL: 5, FDP-2: 5, 1st Dorsal Interosseous: 5 and APB: 5 Sensation: Radial: I, Ulnar: I and Median: D Supplemental Info [facility] Pulmonary Services/Neurology [address] [place] [address] MR#:? [id number] Acct: [id number] Name: TONIE OLIVERA Rep #: [id number] :? 1975 ?46 From: Odalis Chase MD Referring Dr: ? ? Landry Lowery MD Status:? REG CLI Location:? PSN Date:? 11/26/22 Sex: F C NCS and/or EMG Patient Report Ordering Doctor: Landry Lowery DATE OF SERVICE: 11/26/22 Tonie presents for electrodiagnostic testing of the upper limbs.? She reports numbness and tingling in both hands, worse on the left side and worse over the past 2 months. Electrodiagnostic findings: Left median motor nerve demonstrates prolonged distal latency with normal amplitude and reduced conduction velocity.? Right median motor nerve demonstrates prolonged distal latency with normal amplitude and reduced conduction velocity.? Normal ulnar motor response bilaterally.? Prolonged left median F wave.? On needle EMG, all muscles tested in the upper limbs showed no evidence of denervation with normal motor unit action potentials. Electrodiagnostic impression: This is an abnormal study in the upper limbs. 1.? Electrodiagnostic findings suggestive of bilateral median mononeuropathy.? This is consistent with a moderate to advanced left carpal tunnel syndrome and a mild to moderate right carpal tunnel syndrome. 2.? No electrodiagnostic evidence is noted for cervical radiculopathy. Procedures Neurology CF Procedures [id number]: 19928-14 Nrv cndj test 13/> studies (interp) Multi Select Codes Neurology Neurology Interp Codes: 38107-89 Musc test done w/n test comp (interp) (2 ) and 22660-27 Nrv cndj test 13/> studies (interp) Coding Level of Care Code Off vis,new,level 3 Diagnoses Bilateral carpal tunnel syndrome G56.03 Assessment and Plan Assessment and Plan (1) Bilateral carpal tunnel syndrome: Status: Acute Plan: 46 F bilat CTS. Rubia rest ice anti-inflammatories activity modifications nighttime splinting cortisone injections temporarily for endoscopic or open carpal tunnel release. Typically nonsurgical management is likely to fail with moderate to advanced disease and symptoms such as on the left side but this is definitely an option for the patient. 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 This is where most of her symptoms are confirmed by nerve conduction study. She would like to go ahead with left endoscopic carpal tunnel release. I will get a preoperative clearance given her elevated BMI and other medical risk factors. Pros and cons risks and benefits were discussed with the patient including but not limited to infection, pain, stiffness, bleeding, damage to surrounding structures, neurovascular injury, recurrence or retear, failure or wear of hardware or fixation, instability, fracture, deep vein thrombosis and pulmonary embolism, anesthetic risks, , patient dissatisfaction, need for further surgery and other risks. Patient understood and wished to proceed with surgery, and signed the informed consent documentation. [facility] Medical History (Updated 01/21/23 @ 09:17 by Sadia Gibbons) Bilateral carpal tunnel syndrome BiPAP (biphasic positive airway pressure) dependence Cardiology follow-up encounter Dyspnea on exertion Mono's disease Heartburn High cholesterol History of echocardiogram History of edema History of stress test Hyperlipidemia Hypothyroidism Impaired glucose tolerance Left ventricular hypertrophy Lymphedema Morbid obesity Non-smoker ABHIJIT (obstructive sleep apnea) PCOS (polycystic ovarian syndrome) Peripheral edema Shortness of breath on exertion Sleep apnea Thyroid disease Vitamin D deficiency Home Medications atorvastatin 20 mg tablet (Lipitor) 20 mg PO QDAY 11/06/17 [History Last Taken 11/15/17] cholecalciferol (vitamin D3) 1,250 mcg (50,000 unit) capsule 50,000 unit PO QWEEK 11/06/17 [History Last Taken 11/15/17] levothyroxine 300 mcg tablet 300 mcg PO DAILY 08/26/21 [History Last Taken Unknown] levothyroxine 75 mcg tablet 75 mcg PO DAILY 08/26/21 [History Last Taken Unknown] valsartan 80 mg tablet 80 mg PO DAILY 08/26/21 [History Last Taken Unknown] Allergy/AdvReac Type Severity Reaction Status Date / Time sulfamethoxazole Allergy Mild Rash Verified 01/28/23 06:16 [From Bactrim] trimethoprim [From Bactrim] Allergy Mild Rash Verified 01/28/23 06:16 lisinopril AdvReac Intermediate cough Verified 01/28/23 06:16 Family History (Reviewed 12/17/22 @ 13:52 by Desiree Allen LENS FABRICATING MACHINE TENDER, LENS FABRICATING MACHINE TENDER-C) Father Pulmonary fibrosis S/P triple vessel bypass, Onset Age: 48 H/O heart artery stent CAD (coronary artery disease) Mother Thyroid disorder Uterine cancer Thyroid cancer Grandmother CAD (coronary artery disease) Myocardial infarction Surgical History H/O thyroidectomy History of hysteroscopy Tubal ligation status Social History (Reviewed 12/17/22 @ 13:52 by Desiree Allen LENS FABRICATING MACHINE TENDER, LENS FABRICATING MACHINE TENDER-C) number of children: 2 Smoking Status: Never smoker alcohol intake: current alcohol intake frequency: holidays/special occasions only substance use type: does not use caffeine: Yes Type: coffee Number of servings: 4 Vital Signs Vital Signs Vital Signs: 01/28/23 06:16 01/28/23 06:16 Temperature 98.1 F Temperature Source Temporal Pulse Rate 84 Respiratory Rate 18 Respiratory Pattern Normal Blood Pressure 147/78 H Blood Pressure Mean 101 Blood Pressure Source Monitor Blood Pressure Position Sitting Blood Pressure Location Left Forearm Pulse Ox 93 Oxygen Delivery Method Room Air Weight Weight: 421 lb 1.326 oz Body Mass Index (BMI) 58.7
[2023-01-28] MEDS: Cefazolin 2 GM in 0.9% Normal Saline 100 ML IV (07:29)
[2023-01-28] MEDS: Bupivacaine 0.25% 30 ML Vial (07:50)
--- NOTE | 2023-01-28 08:07 | OP.PCM_ITS ---
Problems Associated Problem List Diagnoses (1) Bilateral carpal tunnel syndrome: Report of Operation Date of Procedure: 01/28/23 Pre-Operative Diagnosis: left carpal tunnel syndrome Post-Operative Diagnosis: same Surgery/Procedure Performed:: left endoscopic carpal tunnel release Surgeon: Arie Gallegos Type of Anesthesia: Local MAC and Local Anesthesiologist: Jt Grimaldo Estimated Blood Loss (mL): 5 Description of Procedure: Patient was brought to the operating room theater.? The patient was administered 3g iv ancef prior to the start of the procedure.? Placed supine on the operating room table.? Anesthesia induced.? SCDs on the legs.? Tourniquet applied to the left upper operative extremity, appropriately padded. Arm table used. Operative extremity prepped and draped in the usual sterile fashion with chlorhexidine- based prep solution allowing over 3 minutes drying time prior to draping.? Preoperative timeout performed to confirm the site patient and the surgery. Limb limb elevated tourniquet inflated to 250 mmHg.? I used the [employer] center line endoscopic carpal tunnel kit / technique. Exsanguinated limb. 6cc 0.25% bupivicaine at incision site. ? I made a transverse 2 cm incision in line with the? transverse wrist crease.? This was in line with the fourth digit.? I carried the dissection down through skin and subcutaneous tissue achieved meticulous hemostasis. Just ulnar to palmaris tendon.? I incised the antebrachial fascia.? I passed sequential dilators into the carpal tunnel along the radial border of the Guyon's canal aiming for the fourth digit with the hand in extension.? I used a synovial elevator to identify the transverse fibers of the transverse carpal tunnel ligament.? Passed the scope into the carpal tunnel. Once I had identified the full proximal and distal extent of the ligament I fully released the ligament under direct visualization by deploying the blade and slowly withdrawing the scope made sequential passes until I no longer felt tension as well as the entire extent of the ligament was released under direct visualization.? Sounded the tunnel with sagastume tenotomy scissors, complete release, no bands. Arthroscope light was more visible through the skin. Pictures taken and saved. Wound thoroughly irrigated.? Tourniquet let down prior to end of the case and meticulous hemostasis achieved.? Thorough irrigation.? ? Incisions closed with 3-0 nylon for the skin.?Skin was cleaned and dried. adaptic 4x4 gauze and tirso. Patient woken up,? transferred off the operating room table and taken to postanesthetic care unit in stable condition. All sponge needle instrument counts were correct no complications.? Plan for the patient to be discharged home according to day surgery criteria when they are comfortable. Follow-up in the office in 2 days time. Gentle ROM hand and elbow no heavy lifting. cpt 67350 Complications none Admit VTE Documentation VTE Present on Admission: No VTE Mechan Device Prophylaxis: SCD's Reason prophylaxis not ordered:: Treatment Not Indicated Procedures Musculoskeletal 20xxx-29xxx: Other Procedure See Report
--- NOTE | 2023-01-28 08:09 | DCINST_ITS ---
Discharge Instructions Diet Discharge Diet: No restrictions Activity May resume sexual activity in: No Restrictions Lifting Restrictions: ok for hand wrist and elbow ROM, no heavy lifting or gripping 6 weeks Keep extremity elevated above heart level: Operative Extremity Dressing / Incision Call your doctor if your incision/area has: Continuous Slow Oozing, Sudden Increased Bleeding, Increased Pain/ Swelling, Increased Redness, Foul Smelling Discharge and Swelling at the incision site Change Dressing in: leave in place till F/U Follow Up Care Please Follow Up With: Arie Gallegos MD When: 2 days Test Results: Test results from this visit will be discussed in further detail at your follow- up appointment, if applicable. Discharge Plan Admission Attending Provider: Arie Gallegos Primary Care Provider: Landry Lowery Instructions Patient Instructions: Carpal Tunnel Release Surgery Discharge Orders/Prescriptions Prescriptions: No Action cholecalciferol (vitamin D3) 50,000 unit capsule 50,000 unit PO QWEEK atorvastatin [Lipitor] 20 mg tablet 20 mg PO QDAY levothyroxine 300 mcg tablet 300 mcg PO DAILY Rx Instructions: Take with 75 mcg to = 375 mcg daily levothyroxine 75 mcg tablet 75 mcg PO DAILY Rx Instructions: Take with 300 mcg to = 375 mcg daily valsartan 80 mg tablet 80 mg PO DAILY Referrals / Follow Up: Landry Lowery MD [Primary Care Provider] - Arie Gallegos MD [Med Staff - Active Staff] - Disposition Disposition (needs filled in before D/C Order can be placed): Home, Self Care
== END 2023-01-28 09:15 | disposition home or self-care (01) ==
LOC: SDC 05:44 → AC 05:44
PROVIDERS: PCP Family Medicine; Referring Provider Orthopaedic Surgery Sports Medicine; Visit Provider Orthopaedic Surgery Sports Medicine
PROC: (CPT 29848; principal; 2023-01-28 07:15)
DX: G56.03 Carpal tunnel syndrome, bilateral upper limbs (principal); E78.00 Pure hypercholesterolemia, unspecified; Z79.2 Long term (current) use of antibiotics; G47.33 Obstructive sleep apnea (adult) (pediatric); Z99.89 Dependence on other enabling machines and devices; E03.9 Hypothyroidism, unspecified
CPT/HCPCS: 29848; J7120

== ENCOUNTER 2023-02-25 05:50 | Day surgery (SDC) | payer OTHER, SELFPAY ==
[2023-02-25] VITALS (10 sets, daily range): BP systolic 106–154; BP diastolic 49–101; PULSE 74–90; RESP 14–24; TEMP 36.2–36.4; O2SAT 80–96; BMI 61.0
[2023-02-25] MEDS: Lactated Ringers 1,000 ML 15 ML IV (06:37)
--- NOTE | 2023-02-25 07:07 | HP.PCM_ITS ---
HPI - General HPI Narrative TONIE OLIVERA, is a 47 F who presents for right endoscopic carpal tunnel release. Right wrist marked. Discussed pros and cons risks and benefits of proceeding. Patient ready to go ahead. No history of changes to the history and physical exam. Discussed postoperative pain control typically with oral [id number] medications no narcotics. Recommend gentle range of motion of the hand no heavy lifting or gripping after surgery and follow-up in the office in 2 days time. Patient did the other side recently so understands and no further questions. MR#: [id number] Acct: [id number] Name: TONIE OLIVERA Rep #: [id number] : 1975 Provider: Dr. Arie Gallegos MD Age/Sex: 46/F Location: [facility] [place] Status: Signed Intake Vital Signs 12/04/2312:27 Height 5 ft 10 in Weight: 423 lb BMI 60.7 Intake Visit Reasons: BL HANDS Is patient in pain?: Yes Allergies sulfamethoxazole [From Bactrim] Allergy (Mild, Verified 12/04/22 13:24)Rashtrimethoprim [From Bactrim] Allergy (Mild, Verified 12/04/22 13:24) Rashlisinopril Adverse Reaction (Intermediate, Verified 12/04/22 13:24) cough Medications atorvastatin 20 mg tablet (Lipitor) 20 mg PO QDAY 11/06/17 [History Confirmed 12/04/22] cholecalciferol (vitamin D3) 1,250 mcg (50,000 unit) capsule 50,000 unit PO QWEEK 11/06/17 [History Confirmed 12/04/22] levothyroxine 300 mcg tablet 300 mcg PO DAILY 08/26/21 [History Confirmed 12/04/22] levothyroxine 75 mcg tablet 75 mcg PO DAILY 08/26/21 [History Confirmed 12/04/22] valsartan 80 mg tablet 80 mg PO DAILY 08/26/21 [History Confirmed 12/04/22] PFSH Medical History Bilateral carpal tunnel syndrome Dyspnea on exertion Mono's disease Hyperlipidemia Hypothyroidism Impaired glucose tolerance Left ventricular hypertrophy Lymphedema Morbid obesity ABHIJIT (obstructive sleep apnea) PCOS (polycystic ovarian syndrome) Peripheral edema Vitamin D deficiency Surgical History H/O thyroidectomy History of hysteroscopy Tubal ligation status Family History Father Pulmonary fibrosis S/P triple vessel bypass, Onset Age: 48 H/O heart artery stent CAD (coronary artery disease)Mother Thyroid disorder Uterine cancer Thyroid cancerGrandmother CAD (coronary artery disease) Myocardial infarction Social History number of children: 2 Smoking Status: Never smoker alcohol intake: current alcohol intake frequency: holidays/special occasions only substance use type: does not use caffeine: Yes Type: coffee Number of servings: 4 HPI BL HANDS Details: Parts of this documentation were recorded by a scribe, this documentation accurately reflects the service provided and the decisions made by me, Dr. Arie Gallegos MD 12/04/22 8833. TONIE OLIVERA is a 46 year old F here today for bilateral hand numbness ... 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 Finge rs numb index and thumb and then to the middle, pain in the first 3. Did not try night splinting,. but getting worse on the left side. no diabetes, gets checked 1 3 months. Ortho Exam General General: Yes no acute distress Neurologic: Yes alert and Yes oriented x3 Psychologic: Yes reasonable and appropriate Right Wrist/Hand Skin/Wound: Yes CDI, No Swelling, No Ecchymosis, Yes nail intact and Yes capillary refill normal Right Wrist: Yes ROM-Extension 0-60, ROM-Flexion 0-80, ROM-Pronation 0-80, ROM- Supination 0-90, Phalen's and Thenar Atrophy; No Tinel's, Tender to palpate triangular fibrocartilage complex or Distal radioulnar joint Motor: EPL: 5, FDP-2: 5, 1st Dorsal Interosseous: 5 and APB: 5 Sensation: Radial: I, Ulnar: I and Median: D WRIST: neg tinels at elbow and wrist bilat Left Wrist/Hand Skin/Wound: No Swelling, No Ecchymosis, Yes nail intact, Yes capillary refill normal and No erythema Left Wrist: Yes ROM-Extension 0-60, Yes ROM-Flexion 0-80, Yes ROM-Pronation 0- 80, Yes ROM-Supination 0-90, Yes Phalen's and Yes Thenar Atrophy; No Tinel's Motor: EPL: 5, FDP-2: 5, 1st Dorsal Interosseous: 5 and APB: 5 Sensation: Radial: I, Ulnar: I and Median: D Supplemental Info [facility] [address] [place] [address] MR#:? [id number] Acct: [id number] Name: TONIE OLIVERA Rep #: [id number] :? 1975 ?46 From: Odalis Chase MD Referring Dr: ? ? Landry Lowery MD Status:? REG CLI Location:? PSN Date:? 11/26/22 Sex: F C NCS and/or EMG Patient Report Ordering Doctor: Landry Lowery DATE OF SERVICE: 11/26/22 Tonie presents for electrodiagnostic testing of the upper limbs.? She reports numbness and tingling in both hands, worse on the left side and worse over the past 2 months. Electrodiagnostic findings: Left median motor nerve demonstrates prolonged distal latency with normal amplitude and reduced conduction velocity.? Right median motor nerve demonstrates prolonged distal latency with normal amplitude and reduced conduction velocity.? Normal ulnar motor response bilaterally.? Prolonged left median F wave.? On needle EMG, all muscles tested in the upper limbs showed no evidence of denervation with normal motor unit action potentials. Electrodiagnostic impression: This is an abnormal study in the upper limbs. 1.? Electrodiagnostic findings suggestive of bilateral median mononeuropathy.? This is consistent with a moderate to advanced left carpal tunnel syndrome and a mild to moderate right carpal tunnel syndrome. 2.? No electrodiagnostic evidence is noted for cervical radiculopathy. Procedures Neurology CF Procedures [id number]: 00982-85 Nrv cndj test 13/> studies (interp) Multi Select Codes Neurology Neurology Interp Codes: 50649-66 Musc test done w/n test comp (interp) (2 ) and 70235-30 Nrv cndj test 13/> studies (interp) Coding Level of Care Code Off vis,new,level 3 Diagnoses Bilateral carpal tunnel syndrome G56.03 Assessment and Plan Assessment and Plan (1) Bilateral carpal tunnel syndrome: Status: Acute Plan: 46 F bilat CTS. Rubia rest ice anti-inflammatories activity modifications nighttime splinting cortisone injections temporarily for endoscopic or open car pal tunnel release. Typically nonsurgical management is likely to fail with moderate to advanced disease and symptoms such as on the left side but this is definitely an option for the patient. 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 This is where most of her symptoms are confirmed by nerve conduction study. She would like to go ahead with left endoscopic carpal tunnel release. I will get a preoperative clearance given her elevated BMI and other medical risk factors. Pros and cons risks and benefits were discussed with the patient including but not limited to infection, pain, stiffness, bleeding, damage to surrounding struc tures, neurovascular injury, recurrence or retear, failure or wear of hardware or fixation, instability, fracture, deep vein thrombosis and pulmonary embolism, anesthetic risks, , patient dissatisfaction, need for further surgery and other risks. Patient understood and wished to proceed with surgery, and signed the informed consent documentation. [facility] Medical History (Updated 01/21/23 @ 09:17 by Sadia Gibbons) Bilateral carpal tunnel syndrome BiPAP (biphasic positive airway pressure) dependence Cardiology follow-up encounter Dyspnea on exertion Mono's disease Heartburn High cholesterol History of echocardiogram History of edema History of stress test Hyperlipidemia Hypothyroidism Impaired glucose tolerance Left ventricular hypertrophy Lymphedema Morbid obesity Non-smoker ABHIJIT (obstructive sleep apnea) PCOS (polycystic ovarian syndrome) Peripheral edema Shortness of breath on exertion Sleep apnea Thyroid disease Vitamin D deficiency Home Medications atorvastatin 20 mg tablet (Lipitor) 20 mg PO QDAY 11/06/17 [History Last Taken 11/15/17] cholecalciferol (vitamin D3) 1,250 mcg (50,000 unit) capsule 50,000 unit PO QWEEK 11/06/17 [History Last Taken 11/15/17] levothyroxine 300 mcg tablet 300 mcg PO DAILY 08/26/21 [History Last Taken Unknown] levothyroxine 75 mcg tablet 75 mcg PO DAILY 08/26/21 [History Last Taken Unknown] valsartan 80 mg tablet 80 mg PO DAILY 08/26/21 [History Last Taken Unknown] Allergy/AdvReac Type Severity Reaction Status Date / Time sulfamethoxazole Allergy Mild Rash Verified 01/28/23 06:16 [From Bactrim] trimethoprim [From Bactrim] Allergy Mild Rash Verified 01/28/23 06:16 lisinopril AdvReac Intermediate cough Verified 01/28/23 06:16 Family History (Reviewed 12/17/22 @ 13:52 by Desiree Allen OUTSIDE SALES REPRESENTATIVE, OUTSIDE SALES REPRESENTATIVE-C) Father Pulmonary fibrosis S/P triple vessel bypass, Onset Age: 48 H/O heart artery stent CAD (coronary artery disease)Mother Thyroid disorder Uterine cancer Thyroid cancerGrandmother CAD (coronary artery disease) Myocardial infarction Surgical History H/O thyroidectomy History of hysteroscopy Tubal ligation status Social History (Reviewed 12/17/22 @ 13:52 by Desiree Allen OUTSIDE SALES REPRESENTATIVE, OUTSIDE SALES REPRESENTATIVE-C) number of children: 2 Smoking Status: Never smoker alcohol intake: current alcohol intake frequency: holidays/special occasions only substance use type: does not use caffeine: Yes Type: coffee Number of servings: 4 Vital Signs Vital Signs Vital Signs: 01/28/2306:16 01/28/2306:16 Temperature 98.1 F Temperature Source Temporal Pulse Rate 84 Respiratory Rate 18 Respiratory Pattern Normal Blood Pressure 147/78 H Blood Pressure Mean 101 Blood Pressure Source Monitor Blood Pressure Position Sitting Blood Pressure Location Left Forearm Pulse Ox 93 Oxygen Delivery Method Room Air Weight Weight: 421 lb 1.326 oz Body Mass Index (BMI) 58.7 01/28/23 0713 <Electronically signed by Arie Gallegos MD> Cosigner Signature (if applicable): CC: Dr. Landry Lowery MD; Dr. Arie Gallegos MD~ Signed [facility] Medical History (Updated 02/18/23 @ 14:15 by Rebekah Weiss) Bilateral carpal tunnel syndrome BiPAP (biphasic positive airway pressure) dependence Cardiology follow-up encounter Dyspnea on exertion Mono's disease Heartburn High cholesterol History of echocardiogram History of edema History of stress test Hyperlipidemia Hypothyroidism Impaired glucose tolerance Left ventricular hypertrophy Lymphedema Morbid obesity Non-smoker ABHIJIT (obstructive sleep apnea) PCOS (polycystic ovarian syndrome) Peripheral edema Shortness of breath on exertion Thyroid disease Vitamin D deficiency Home Medications atorvastatin 20 mg tablet (Lipitor) 20 mg PO QDAY 11/06/17 [History Last Taken 11/15/17] cholecalciferol (vitamin D3) 1,250 mcg (50,000 unit) capsule 50,000 unit PO QWEEK 11/06/17 [History Last Taken 11/15/17] levothyroxine 300 mcg tablet 300 mcg PO DAILY 08/26/21 [History Last Taken Unknown] levothyroxine 75 mcg tablet 75 mcg PO DAILY 08/26/21 [History Last Taken Unknown] valsartan 80 mg tablet 80 mg PO DAILY 08/26/21 [History Last Taken 02/25/23] Allergy/AdvReac Type Severity Reaction Status Date / Time sulfamethoxazole Allergy Mild Rash Verified 02/25/23 06:28 [From Bactrim] trimethoprim [From Bactrim] Allergy Mild Rash Verified 02/25/23 06:28 lisinopril AdvReac Intermediate cough Verified 02/25/23 06:28 Family History (Reviewed 12/17/22 @ 13:52 by Desiree Allen OUTSIDE SALES REPRESENTATIVE, OUTSIDE SALES REPRESENTATIVE-C) Father Pulmonary fibrosis S/P triple vessel bypass, Onset Age: 48 H/O heart artery stent CAD (coronary artery disease) Mother Thyroid disorder Uterine cancer Thyroid cancer Grandmother CAD (coronary artery disease) Myocardial infarction Surgical History (Updated 02/09/23 @ 14:14 by Barbara Hercules) H/O thyroidectomy History of carpal tunnel surgery of left wrist History of hysteroscopy Tubal ligation status Social History number of children: 2 Smoking Status: Never smoker alcohol intake: current alcohol intake frequency: holidays/special occasions only substance use type: does not use caffeine: Yes Type: coffee Number of servings: 4 Vital Signs Vital Signs Vital Signs: 02/25/23 06:31 02/25/23 06:31 Temperature 97.2 F L Temperature Source Temporal Pulse Rate 74 Respiratory Rate 16 Respiratory Pattern Normal Blood Pressure 126/70 H Blood Pressure Mean 88 Blood Pressure Source Monitor Blood Pressure Position Semi-Fowlers Blood Pressure Location Right Arm Pulse Ox 96 Oxygen Delivery Method Room Air Weight Weight: 425 lb 7.874 oz Body Mass Index (BMI) 61.0
--- NOTE | 2023-02-25 08:19 | OP.PCM_ITS ---
Problems Associated Problem List Diagnoses (1) Bilateral carpal tunnel syndrome: Report of Operation Date of Procedure: 02/25/23 Pre-Operative Diagnosis: right carpal tunnel syndrome Post-Operative Diagnosis: same Surgery/Procedure Performed:: right endoscopic carpal tunnel release Surgeon: Arie Gallegos Type of Anesthesia: General and Local Anesthesiologist: Devonte Guerin Estimated Blood Loss (mL): 10 Description of Procedure: Patient was brought to the operating room theater.? The patient was administered 3g iv ancef prior to the start of the procedure.? Placed supine on the operating room table.? Anesthesia induced.? SCDs on the legs.? Tourniquet applied to the right upper operative extremity, appropriately padded. Arm table used. Operative extremity prepped and draped in the usual sterile fashion with chlorhexidine- based prep solution allowing over 3 minutes drying time prior to draping.? Preoperative timeout performed to confirm the site patient and the surgery. Limb limb elevated tourniquet inflated to 250 mmHg.? I used the [employer] center line endoscopic carpal tunnel kit / technique. Tourniquet to 250mmhg. 8cc 0.25% bupivicaine at incision site. ? I made a transverse 2 cm incision in line with the? transverse wrist crease.? This was in line with the fourth digit.? I carried the dissection down through skin and subcutaneous tissue achieved meticulous hemostasis. Just ulnar to palmaris tendon.? I incised the antebrachial fascia.? I passed sequential dilators into the carpal tunnel along the radial border of the Guyon's canal aiming for the fourth digit with the hand in extension.? I used a synovial elevator to identify the transverse fibers of the transverse carpal tunnel ligament.? Passed the scope into the carpal tunnel. Once I had identified the full proximal and distal extent of the ligament I fully released the ligament under direct visualization by deploying the blade and slowly withdrawing the scope made sequential passes until I no longer felt tension as well as the entire extent of the ligament was released under direct visualization.? Sounded the tunnel with sagastume tenotomy scissors, complete release, no bands. Arthroscope light was more visible through the skin. Pictures taken and saved. Wound thoroughly irrigated.? Tourniquet let down prior to end of the case and meticulous hemostasis achieved.? Thorough irrigation.? ? Incisions closed with 3-0 nylon for the skin.?Skin was cleaned and dried. adaptic 4x4 gauze and tirso. Patient woken up,? transferred off the operating room table and taken to postanesthetic care unit in stable condition. All sponge needle instrument counts were correct no complications.? Plan for the patient to be discharged home according to day surgery criteria when they are comfortable. Follow-up in the office in 2 days time. Gentle ROM hand and elbow no heavy lifting. code cpt CPT 55678 Complications none Admit VTE Documentation VTE Present on Admission: No VTE Mechan Device Prophylaxis: SCD's VTE Pharm Prophylaxis ordered?: No Reason prophylaxis not ordered:: Treatment Not Indicated Procedures Musculoskeletal 20xxx-29xxx: Other Procedure See Report
--- NOTE | 2023-02-25 08:22 | DCINST_ITS ---
Discharge Instructions Diet Discharge Diet: No restrictions Activity Discharge Activity: Return to Normal Activity Lifting Restrictions: ok for rom of fingers and hand, no heavy lifting or gripping Keep extremity elevated above heart level: Operative Extremity Dressing / Incision Call your doctor if your incision/area has: Continuous Slow Oozing, Sudden Increased Bleeding, Increased Pain/ Swelling, Increased Redness, Foul Smelling Discharge and Swelling at the incision site Remove Dressing in: leave in place till F/U Cleanse incision/area with: Do not get Incision Wet Follow Up Care Please Follow Up With: Arie Gallegos MD When: 2 days Test Results: Test results from this visit will be discussed in further detail at your follow- up appointment, if applicable. Discharge Plan Admission Attending Provider: Arie Gallegos Primary Care Provider: Landry Lowery Discharge Orders/Prescriptions Prescriptions: No Action cholecalciferol (vitamin D3) 50,000 unit capsule 50,000 unit PO QWEEK atorvastatin [Lipitor] 20 mg tablet 20 mg PO QDAY levothyroxine 300 mcg tablet 300 mcg PO DAILY Rx Instructions: Take with 75 mcg to = 375 mcg daily levothyroxine 75 mcg tablet 75 mcg PO DAILY Rx Instructions: Take with 300 mcg to = 375 mcg daily valsartan 80 mg tablet 80 mg PO DAILY Referrals / Follow Up: Landry Lowery MD [Primary Care Provider] - Arie Gallegos MD [Med Staff - Active Staff] - Disposition Disposition (needs filled in before D/C Order can be placed): Home, Self Care
--- NOTE | 2023-02-25 11:07 | SUR.PHASEII ---
Patient's clothes visibly soiled and malodorous. Patient also malodorous and offered clean mesh panties, feminine pad or brief. Offered wipes. Patient declines all assistance with hygiene. Poor personal hygiene. Cognitively appropriate. A&O x4.
== END 2023-02-25 11:21 | disposition home or self-care (01) ==
LOC: SDC 05:50 → AC 05:55
PROVIDERS: PCP Family Medicine; Referring Provider Orthopaedic Surgery Sports Medicine; Visit Provider Orthopaedic Surgery Sports Medicine
PROC: (CPT 29848; principal; 2023-02-25 07:15)
DX: G56.03 Carpal tunnel syndrome, bilateral upper limbs (principal); E78.5 Hyperlipidemia, unspecified; G47.33 Obstructive sleep apnea (adult) (pediatric); E03.9 Hypothyroidism, unspecified
CPT/HCPCS: 29848; 01810; J7120; J2405